=== PATIENT | female | born 1965 | race Caucasian/White ===

== ENCOUNTER 2016-07-26 02:31 | Emergency (ER) | payer MEDICARE ==
--- NOTE | 2016-07-26 04:13 | ER Document Report ---
ED General - General Chief Complaint: Head Injury without LOC Stated Complaint: FALL/HEAD INJURY Notes: Patient is a 31 year old female who presents with complaint of a fall. She slipped and fell backwards hitting her head. She also landed onto her butt. She has chronic low back problems but says her back hurts little more since falling. No leg weakness or numbness. No urinary retention. No loss of bowel control. No recent fevers or infections. No abdominal pain. No chest pain. No other complaints at this time. TRAVEL OUTSIDE OF THE [place] IN LAST 30 DAYS: No - Related Data Allergies/Adverse Reactions: amitriptyline Allergy (Severe, Verified 10/02/15 12:52) Renal failure atorvastatin calcium [From Lipitor] Allergy (Severe, Verified 10/02/15 12:52) pravastatin Allergy (Severe, Verified 10/02/15 12:52) ezetimibe [From Vytorin] Allergy (Intermediate, Verified 10/02/15 12:52) hydrochlorothiazide Allergy (Intermediate, Verified 10/02/15 12:52) simvastatin [From Vytorin] Allergy (Intermediate, Verified 10/02/15 12:52) sulfamethoxazole [From Bactrim] Allergy (Intermediate, Verified 10/02/15 12:52) Urticaria trimethoprim [From Bactrim] Allergy (Intermediate, Verified 10/02/15 12:52) Urticaria meperidine HCl [From Demerol] Allergy (Verified 10/02/15 12:52) morphine Allergy (Verified 10/02/15 12:52) prochlorperazine [From Compazine] Adverse Reaction (Intermediate, Verified 10/01 12:52) prochlorperazine edisylate [From Compazine] Adverse Reaction (Intermediate, Verified 10/02/15 12:52) prochlorperazine maleate [From Compazine] Adverse Reaction (Intermediate, Verified 10/02/15 12:52) Past Medical History - Social History Smoking Status: Never Smoker Chew tobacco use (# tins/day): No Frequency of alcohol use: None Drug Abuse: None Family History: None Patient has suicidal ideation: No Patient has homicidal ideation: No Endocrine Medical History: Comment Only: Hx Diabetes Mellitus Type 2 - Pre- diabetic Renal/ Medical History: Denies: Hx Peritoneal Dialysis Musculoskeltal Medical History: Reports Hx Fibromyalgia Past Surgical History: Reports: Hx Abdominal Surgery - gastric bypass, gallstones, Hx Urinary Tract Surgery - kidney stone removal Review of Systems - Review of Systems Notes: My Normal Review Basic REVIEW OF SYSTEMS: CONSTITUTIONAL : Denies fever, chills, or sweats. Denies recent illness. CARDIOVASCULAR: Denies chest pain. RESPIRATORY: Denies cough, cold, or chest congestion. Denies shortness of breath, difficulty breathing, or wheezing. GASTROINTESTINAL: Denies abdominal pain. Denies nausea, vomiting, or diarrhea. Denies constipation. Last BM: GENITOURINARY: Denies difficulty urinating, painful urination, burning, frequency, or blood in urine. MUSCULOSKELETAL: Low back pain SKIN: Denies rash or skin lesions. NEUROLOGICAL: Denies altered mental status or loss of consciousness. Has a headache. Denies weakness or paralysis or loss of use of either side. Denies problems with gait or speech. Denies sensory or motor loss. ALL OTHER SYSTEMS REVIEWED AND NEGATIVE. Physical Exam - Vital signs Vitals: Temp Pulse Resp BP Pulse Ox 97.6 F 92 18 112/79 96 07/26/16 02:59 07/26/16 02:59 07/26/16 02:59 07/26/16 02:59 07/26/16 02:59 - Notes Notes: General Appearance: Well nourished, alert, cooperative, no acute distress, mild obvious discomfort. Vitals: reviewed, See vital signs table. Head: Small hematoma to the back of the head. No crepitance. No scalp laceration. Eyes: PERRL, EOMI, Conjuctiva clear Mouth: No decreasd moisture Throat: No tonsillar inflammation, No airway obstruction, No lymphadenopathy Neck: Supple, no neck tenderness, No thyromegaly Lungs: No wheezing, No rales, No rhonci, No accessory muscle use, good air exchange bilaterally. Heart: Normal rate, Regular rythm, No murmur, no rub Abdomen: Normal BS, soft, No rigidity, No abdominal tenderness, No guarding, no rebound, no abdominal masses, no organomegaly Back: Some pain to palpation of the LS junction. No step-offs or deformities. Extremities: Good strength with plantar and dorsiflexion against resistance., good pulses in all extremities, no swelling or tenderness in the extremities, no edema. Skin: warm, dry, appropriate color, no rash Neuro: speech clear, oriented x 3, normal affect, responds appropriately to questions. Normal distal sensation. Cranial nerves II through XII are intact. Course - Vital Signs Vital signs: Temp Pulse Resp BP Pulse Ox 97.6 F 92 18 112/79 96 07/26/16 02:59 07/26/16 02:59 07/26/16 02:59 07/26/16 02:59 07/26/16 02:59 - Transfer of Care Notes: 07/26/16 05:38 Patient's x-rays and CT scan are negative. She looks very well. I feel she is safe to be discharged home. I encourage her to return to the ER immediately if she has severe headache, vomiting, loss of bowel control, urinary retention, or worsening pain. Patient agrees with plan and will be discharged home. Dictation of this chart was performed using voice recognition software; therefore, there may be some unintended grammatical errors. Discharge - Discharge Clinical Impression: Minor head injury without loss of consciousness Qualifiers: Encounter type: initial encounter Qualified Code(s): S09.90XA - Unspecified injury of head, initial encounter Low back pain Qualifiers: Chronicity: chronic Back pain laterality: bilateral Sciatica presence: without sciatica Qualified Code(s): M54.5 - Low back pain; G89.29 - Other chronic pain Fall Qualifiers: Encounter type: initial encounter Qualified Code(s): W19.XXXA - Unspecified fall, initial encounter Disposition: HOME, SELF-CARE Additional Instructions: Please return to ER immediately if you have severe headache, intractable vomiting, or feel confused, increasing back pain, weakness or numbness into legs , loss of control of her bowel function, or inability to urinate. Please follow -up with your doctor in 2-3 days for close reevaluation. Referrals: PANCHO LOYD MD [Primary Care Provider] - 07/30/16
[2016-07-26 06:10] VITALS: BP 114/78
== END 2016-07-26 06:00 | disposition home or self-care (01) ==
LOC: ER 02:31
DX: S09.90XA Unspecified injury of head, initial encounter (principal); W01.0XXA Fall on same level from slipping, tripping and stumbling without subsequent striking against object, initial encounter; M54.5 Low back pain; G89.29 Other chronic pain; Z88.8 Allergy status to other drugs, medicaments and biological substances; Z88.1 Allergy status to other antibiotic agents; Z88.5 Allergy status to narcotic agent; Z98.84 Bariatric surgery status
CPT/HCPCS: 70450; 72110; 99284

== ENCOUNTER → 2016-11-30 | Outpatient (CLI) | payer MEDICARE ==
--- NOTE | 2016-12-02 09:47 | RADIOLOGY REPORT (SQ) ---
EXAM DESCRIPTION: MRI CERVICAL SPINE WITHOUT COMPLETED DATE/TIME: 11/30/2016 6:43 pm REASON FOR STUDY: Other abnormal involuntary movements,Unspecified abnormalities of gait and R23.8 OTHER SKIN CHANGES R26.9 UNSPECIFIED ABNORMALITIES OF GAIT AND MOBILITY M50.30 OTHER CERVICAL DISC DEGENERATION, UNSP CERVICAL REGIO COMPARISON: CT cervical spine 10/02/2015 TECHNIQUE: Sagittal and Axial imaging includes T1, T2, STIR and gradient echo sequences. LIMITATIONS: Motion artifact throughout the study FINDINGS: ALIGNMENT: Normal. VERTEBRAE: Intact. BONE MARROW: Fatty reactive marrow changes at C5-6, edematous and sclerotic vertebral body endplate c hanges at C6-7 DISCS: Diffuse decreased T2 weighted intervertebral disc signal with diffuse disc space loss of HARDWARE: None in the spine. CORD AND BASE OF BRAIN: Normal in size and signal intensity. SOFT TISSUES: No soft tissue masses. C1-C2: No significant spinal stenosis. C2-C3: No significant spinal stenosis or exit foraminal stenosis. C3-C4: Moderate bilateral foraminal narrowing from facet and uncovertebral hypertrophy left greater t [place] right. No central stenosis. C4-C5: Mild bilateral foraminal narrowing from facet and uncovertebral hypertrophy. No central steno sis. C5-C6: Broad diffuse posterior disc bulge and bony spurring causes borderline central canal stenosis. High-grade bilateral foraminal narrowing from facet and uncovertebral hypertrophy. C6-C7: No significant spinBroad diffuse posterior disc bulge and bony spurring causes borderline cent ral canal stenosis. High-grade bilateral foraminal narrowing from facet and uncovertebral hypertroph yal stenosis or exit foraminal stenosis. C7-T1: No significant spinal stenosis or exit foraminal stenosis. UPPER THORACIC: Incompletely imaged. No significant spinal stenosis or exit foraminal stenosis. OTHER: No other significant finding. IMPRESSION: Degenerative changes as above TECHNICAL DOCUMENTATION: JOB ID: [id number] [employer]- All Rights Reserved
--- NOTE | 2016-12-02 09:51 | RADIOLOGY REPORT (SQ) ---
EXAM DESCRIPTION: MRI HEAD WITHOUT COMPLETED DATE/TIME: 11/30/2016 6:43 pm REASON FOR STUDY: Other abnormal involuntary movements,Unspecified abnormalities of gait and R23.8 OTHER SKIN CHANGES R26.9 UNSPECIFIED ABNORMALITIES OF GAIT AND MOBILITY M50.30 OTHER CERVICAL DISC DEGENERATION, UNSP CERVICAL REGIO COMPARISON: CT brain 10/02/2015, CT brain 07/26/2016 TECHNIQUE: Multiplanar imaging includes non-contrasted T1, T2, FLAIR, and diffusion with ADC map seq uences. Images stored on PACS. LIMITATIONS: None. FINDINGS: ANATOMY: No developmental anomalies. Normal vascular flow voids. Pituitary fossa normal. CSF SPACES: Normal in size and contour. No hemorrhage. 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 No MR evidence of acute infarct. No acute intracranial hemorrhage, mass effect, or midline shift. Minimal spotty bifrontal deep periventricular white matter disease. Punctate foci of FLAIR signal in the bifrontal subcortical regions, likely gliosis along perivascular spaces. POSTERIOR FOSSA: Substantia nigra on the gradient echo T2 images decreased in signal, early changes o f parkinsonism may be present. No acute hemorrhage. No edema, masses or mass effect. Internal audit ory canals, cerebello-pontine angles, mastoids normal. DIFFUSION IMAGING: Negative for acute or sub-acute infarction. ORBITS: No masses. Globes normal. PARANASAL SINUSES: No fluid levels. Mucosa normal. OTHER: No other significant finding. IMPRESSION: No acute findings. 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
== END ==
LOC: RAD 16:54
PROVIDERS: ATTEND Physician Assistant
DX: R25.8 Other abnormal involuntary movements (principal); R26.9 Unspecified abnormalities of gait and mobility; M50.30 Other cervical disc degeneration, unspecified cervical region
CPT/HCPCS: 70551; 72141

== ENCOUNTER → 2017-07-24 | Outpatient (CLI) | payer MEDICARE ==
--- NOTE | 2017-07-24 11:55 | RADIOLOGY REPORT (SQ) ---
EXAM DESCRIPTION: BARIUM SWALLOW PHARYNX ONLY COMPLETED DATE/TIME: 07/24/2017 10:05 am REASON FOR STUDY: DYPHAGIA (R13.10) R13.10 DYSPHAGIA, UNSPECIFIED COMPARISON: None. TECHNIQUE: Under fluoroscopic guidance, patient ingested effervescent granules followed by thick and thin barium. Fluoroscopic spot images and routine radiographic images acquired and stored on PACS. 12 MM BARIUM TABLET GIVEN: Yes. No significant delay in passage. LIMITATIONS: None. FLUOROSCOPY TIME: FLUORO TIME: 2.5 minutes 13 series of digital there is a prominent cricopharyngeal is impression on the dorsal upper esophagus . Images saved to PACS. FINDINGS: NEUROMUSCULAR COORDINATION OF SWALLOW: Normal. No aspiration. There is a prominent cricop haryngeal impression on the dorsal aspect of the upper esophagus. ESOPHAGEAL MOTILITY: Normal peristalsis. No esophageal spasm. ESOPHAGEAL MUCOSA: Normal mucosa without masses or ulceration. GASTRO-ESOPHAGEAL JUNCTION: Patient has had a gastric bypass. There is a small gastric fundal pouch, the majority of which is above the hemidiaphragm. There is gastroesophageal reflux throughout the s tudy without Schatzki's ring or gross distal esophageal mucosal irregularity. Prompt emptying of the gastric fundal pouch into the efferent small bowel loop. No proximal small aman wel ulceration at the anastomosis. NON-GI TRACT STRUCTURES: No significant finding. OTHER: No other significant finding. IMPRESSION: Post gastric bypass. The majority of the fundal best test pouch is above the hemidiaphr agms, with gastroesophageal reflux throughout the study. Prominent cricopharyngeal suppression in th e upper esophagus. No delay in emptying of the fundal pouch into the proximal small bowel loops. No gross evidence of a nastomotic ulcer. COMMENT: Quality ID 145: Final reports for procedures using fluoroscopy that document radiation exp osure indices, or exposure time and number of fluorographic images (if radiation exposure indices are not available) TECHNICAL DOCUMENTATION: JOB ID: [id number] [employer]- All Rights Reserved Reading location - IP/workstation name: [email or web address]
== END ==
LOC: RAD 09:11
PROVIDERS: ATTEND Internal Medicine Rheumatology
DX: R13.10 Dysphagia, unspecified (principal)
CPT/HCPCS: 74210

== ENCOUNTER → 2017-12-09 | Outpatient (CLI) | payer MEDICARE | LOC: OD 14:36 | PROVIDERS: ATTEND Specialist | DX: K43.2 Incisional hernia without obstruction or gangrene (principal) | CPT/HCPCS: 36415; 82565; 84520 ==

== ENCOUNTER → 2018-06-04 | Outpatient (CLI) | payer MEDICARE | LOC: WI 15:01 | PROVIDERS: ATTEND Advanced Practice Midwife | DX: Z12.31 Encounter for screening mammogram for malignant neoplasm of breast (principal) | CPT/HCPCS: 77063; 77067 ==

== ENCOUNTER → 2018-09-11 | Outpatient (CLI) | payer MEDICARE ==
[2018-09-11 10:25] LABS: BLOOD UREA NITROGEN 18 mg/dL (7-20)
== END ==
LOC: LAB 09:24
PROVIDERS: ATTEND Pain Medicine Interventional Pain Medicine
DX: Z00.00 Encounter for general adult medical examination without abnormal findings (principal)
CPT/HCPCS: 36415; 82565; 84520

== ENCOUNTER → 2019-05-04 | Day surgery (SDC) | payer MEDICARE ==
--- NOTE | 2019-05-04 16:13 | RADIOLOGY REPORT (SQ) ---
EXAM DESCRIPTION: PICC INSERTION; U/S GUIDE FOR VASCULAR ACCESS; FLUORO/CV PLACEMENT COMPLETED DATE/TIME: 05/04/2019 3:23 pm REASON FOR STUDY: T84.63XD INFECT/INFLM REACTION DUE TO INT FIX OF SPINE, SUBS, L02.212 CUTAN T84.63 XD INFECT/INFLM REACTION DUE TO INT FIX OF SPINE, SUBS L02.212 CUTANEOUS ABSCESS OF BACK ANY PART, EXCEPT BUTTOCK COMPARISON: None. FLUOROSCOPY TIME: 1 minutes 3 seconds of fluoroscopy was used. 1 images saved to PACS. TECHNIQUE: Fluoroscopic and ultrasound guided PICC placement. LIMITATIONS: None. PROCEDURE: After written consent and assessment were obtained, the patient was brought into the fluo roscopy room and placed supine on the table. Ultrasound evaluation of potential access sites were per formed. After successfully identifying a patent left basilic vein, the left arm was prepped and drape d in a sterile fashion along with the ultrasound probe. The entry site was anesthetized with 1% lidoc brice. A 21 gauge 7 cm needle was advanced through the skin and into the basilic vein under live ultra sound guidance. An ultrasound image was saved to PACS confirming access site. A .018 guide wire was then inserted through the needle and into the venous system. The needle was then removed and an 11 b lade scalpel was used to make a 1cm skin incision. A 5 fr peel-away sheath was advanced over the wir e and into the venous system. A measurement was then made using the existing wire and live fluoroscop ic guidance. The wire was then removed and trimmed. The PICC was advanced through the peel-away sheat h and into the venous system. The peel-away sheath was removed and the catheter was adhered to the pa tients arm with a stat lock. The catheter was then aspirated and flushed and a sterile bandage was pl aced over the access site. A fluoroscopic spot image was saved to PACS confirming the catheter tip w ithin the superior vena cava. IMPRESSION: SUCCESSFUL PLACEMENT OF A 5 FR DUAL LUMEN 41 CM PICC IN THE LEFT BASILIC VEIN. COMMENT: Patient medication list reviewed: Yes- Quality ID# 130:Eligible professional attests to doc umenting in the medical record they obtained, updated, or reviewed the patient's current medications. . Quality ID 145: Final reports for procedures using fluoroscopy that document radiation exposure matthew eva, or exposure time and number of fluorographic images (if radiation exposure indices are not avail able) Quality ID #76: The patient was prepped and draped using maximum sterile barrier technique including cap, mask, sterile gown, sterile gloves, a large sterile sheet, hand hygiene, and 2% Chlorhexidine fo r cutaneous antisepsis. When ultrasound is used, sterile ultrasound techniques are followed requiring sterile gel and sterile probes. TECHNICAL DOCUMENTATION: JOB ID: [id number] [employer]- All Rights Reserved rev-10/11 Reading location - IP/workstation name: [email or web address] [id number]
== END ==
LOC: RAD 13:38
PROVIDERS: ATTEND Specialist
DX: T84.63XD Infection and inflammatory reaction due to internal fixation device of spine, subsequent encounter (principal); L02.212 Cutaneous abscess of back [any part, except buttock and flank]; X58.XXXD Exposure to other specified factors, subsequent encounter
CPT/HCPCS: 85025; 85652; 86140; 80053; 36569; 77001; 76937; C1769; J1642

== ENCOUNTER → 2019-06-05 | Day surgery (SDC) | payer MEDICARE ==
[~2019-06-05] MED LIST: LIDOCAINE 1% INJ-PF (10 MG/ML) 30 ML SDV ONE
--- NOTE | 2019-06-05 13:22 | RADIOLOGY REPORT (SQ) ---
EXAM DESCRIPTION: REMOVAL CENTRAL TUNNELED LINE COMPLETED DATE/TIME: 06/05/2019 10:38 am REASON FOR STUDY: VASCULAR ACCESS NO LONGER NEEDED COMPARISON: None. TECHNIQUE: The procedure, risks, benefits, and alternatives were discussed with the patient in the p reprocedural area, and all questions were answered. Informed consent was obtained verbally and in wri ting. The patient was then brought to the procedural suite, positioned supine on the fluoroscopy table, and a time-out was performed. The right upper chest and external portion of the tunneled PICC were subs equently prepped and draped with 2% chlorhexidine utilizing standard sterile technique. The soft tis sues around the cuff of the tunneled PICC were then infiltrated with 10 mL of 1% lidocaine. After th at, blunt dissection was used to free the cuff of the catheter. The catheter was subsequently remove d intact and without complication. Thaxton garcia was then applied over the entrance of the subcutaneous tunnel and afterwards a sterile dressing was applied over it. At the end of the procedure the patient's condition was unchanged from the preprocedural baseline. The patient tolerated the procedure well with local anesthesia. Documentation of [id number] time performing proceduralist spent monitoring the patient: 15 minutes. RADIATION DOSE: None. LIMITATIONS: None. FINDINGS: Integrated into the Technique. IMPRESSION: Successful removal of a tunneled single-lumen right IJ PICC. TECHNICAL DOCUMENTATION: JOB ID: [id number] [employer]- All Rights Reserved Reading location - IP/workstation name: [email or web address]
== END ==
LOC: RAD 06-04 12:45 → EDSTATUS 13:00
PROVIDERS: ATTEND Specialist
DX: Z45.2 Encounter for adjustment and management of vascular access device (principal)
CPT/HCPCS: 36589; J3490

== ENCOUNTER 2019-06-16 07:56 | Inpatient (IN) | payer MEDICARE ==
--- NOTE | 2019-06-16 09:05 | RADIOLOGY REPORT (SQ) ---
EXAM DESCRIPTION: ANKLE LEFT COMPLETE COMPLETED DATE/TIME: 06/16/2019 7:39 am REASON FOR STUDY: PAIN . Fell. COMPARISON: None NUMBER OF VIEWS: Three views. TECHNIQUE: AP, lateral, and oblique radiographic images acquired of the left ankle. LIMITATIONS: None. FINDINGS: MINERALIZATION: Osteopenia. BONES: There are acute oblique fractures through the distal tibial and fibula metaphysis. Medial dis placement of the distal fracture fragment with approximately 1 cm proximal dislocation. On lateral v iew, there is posterior angulation of the distal fracture fragments. JOINTS: Diffuse soft tissue swelling. SOFT TISSUES: No soft tissue swelling. No foreign body. OTHER: No other significant finding. IMPRESSION: Acute displaced and angulated fractures of the distal tibia and fibula metaphysis. No i nvolvement of the ankle mortise. TECHNICAL DOCUMENTATION: JOB ID: [id number] [employer]- All Rights Reserved Reading location - IP/workstation name: [email or web address]
--- NOTE | 2019-06-16 09:12 | ER Document Report ---
Entered by VEL WEAVER SCRIBE 06/16/19819 Acting as scribe for:KYLEIGH WISEMAN MD ED Extremity Problem, Lower - General Chief Complaint: Ankle Injury Stated Complaint: LEFT ANKLE PAIN Time Seen by Provider: 06/16/19 08:17 Mode of Arrival: Medic Information source: Patient Notes: This 54 year old female patient brought in by EMS presents to the ED today with complaints of a left ankle injury after falling down some steps that occurred prior to arrival. Patient states she was on her way to her cataracts surgery this morning when her "knee gave out" and she fell down a short staircase outside her home. Patient denies a head injury or loss of consciousness. Patient states that she is on chronic pain management for her back and that she recently had lumbar fusion L4-5 on 03/17/19 because of a slipping disc that got infected. Patient states that she was put on IV antibiotics that ran out on 06/04/19 and that she has been npo for her cataracts surgery. TRAVEL OUTSIDE OF THE [place] IN LAST 30 DAYS: No - Related Data Allergies/Adverse Reactions: amitriptyline Allergy (Severe, Verified 06/16/19 08:04) Renal failure atorvastatin calcium [From Lipitor] Allergy (Severe, Verified 06/16/19 08:04) pravastatin Allergy (Severe, Verified 06/16/19 08:04) ezetimibe [From Vytorin] Allergy (Intermediate, Verified 06/16/19 08:04) hydrochlorothiazide Allergy (Intermediate, Verified 06/16/19 08:04) simvastatin [From Vytorin] Allergy (Intermediate, Verified 06/16/19 08:04) sulfamethoxazole [From Bactrim] Allergy (Intermediate, Verified 06/16/19 08:04) Urticaria trimethoprim [From Bactrim] Allergy (Intermediate, Verified 06/16/19 08:04) Urticaria hydromorphone [From Dilaudid] Allergy (Mild, Verified 06/16/19 08:04) ITCHING meperidine HCl [From Demerol] Allergy (Verified 06/16/19 08:04) prochlorperazine [From Compazine] Adverse Reaction (Intermediate, Verified 06/16/19 08:04) Past Medical History - General Information source: Patient - Social History Smoking Status: Never Smoker Chew tobacco use (# tins/day): No Smoking Education Provided: No Frequency of alcohol use: None Drug Abuse: None Lives with: Spouse/Significant other Family History: Reviewed & Not Pertinent Patient has suicidal ideation: No Patient has homicidal ideation: No Endocrine Medical History: Comment Only: Hx Diabetes Mellitus Type 2 - Pre- diabetic Musculoskeletal Medical History: Reports Hx Fibromyalgia Past Surgical History: Reports: Hx Abdominal Surgery - Gallstones, Hx Gastric Bypass Surgery, Hx Urinary Tract Surgery - kidney stone removal Review of Systems - Review of Systems Constitutional: No symptoms reported EENT: No symptoms reported Cardiovascular: No symptoms reported Respiratory: No symptoms reported Gastrointestinal: No symptoms reported Genitourinary: No symptoms reported Female Genitourinary: No symptoms reported Musculoskeletal: See HPI, Ankle swelling, Other - Left ankle injury Skin: No symptoms reported Hematologic/Lymphatic: No symptoms reported Neurological/Psychological: See HPI. denies: Lost consciousness -: Yes All other systems reviewed and negative Physical Exam - Vital signs Vitals: Temp Pulse Resp BP Pulse Ox 98.0 F 100 15 119/89 H 94 06/16/19 08:07 06/16/19 08:07 06/16/19 08:07 06/16/19 08:07 06/16/19 08:07 - General General appearance: Alert - HEENT Head: Normocephalic, Atraumatic Eyes: Normal Pupils: PERRL - Respiratory Respiratory status: No respiratory distress Chest status: Nontender Breath sounds: Normal Chest palpation: Normal - Cardiovascular Rhythm: Regular Heart sounds: Normal auscultation Murmur: No - Abdominal Inspection: Obese Distension: No distension Bowel sounds: Normal Tenderness: Nontender Organomegaly: No organomegaly - Back Back: Normal, Nontender - Extremities General upper extremity: Normal inspection General lower extremity: Tender - Left knee and right ankle near the lateral malleolus posteriorly are tender with palpation., Edema - Left ankle appears to be grossly swollen and immobilized by a splint. Deformity noted right above the left ankle. Edema over lateral malleolus posteriorly of right ankle., Other - Toes on left floot are flexed, cool to touch, and kishan when palpated. 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 Toes are a little cyanotic, which is consistent with Reynaud's. - Neurological Neuro grossly intact: Yes - Psychological Associated symptoms: Normal affect, Normal mood - Skin Skin Temperature: Warm Skin Moisture: Dry Skin Color: Normal Course - Vital Signs Vital signs: Temp Pulse Resp BP Pulse Ox 98.0 F 100 18 137/96 H 99 06/16/19 08:07 06/16/19 08:07 06/16/19 09:00 06/16/19 09:00 06/16/19 09:00 - Diagnostic Test Radiology reviewed: Image reviewed, Reports reviewed - Left ankle--acute displaced and angulated fractures of the distal tibia and fibular metaphyses. No involvement of the ankle mortise. Right ankle--nondisplaced oblique fracture of the distal fibula without involvement of the ankle mortise. - Consults Dr. Park Time consulted: 08:40 Consulted provider: will see as inpatient Discharge - Discharge Clinical Impression: Fractured tibia and fibula Qualifiers: Encounter type: initial encounter Fracture type: closed Laterality: left Qualified Code(s): S82.202A - Unspecified fracture of shaft of left tibia, initial encounter for closed fracture Fracture of distal fibula Qualifiers: Encounter type: initial encounter Fracture type: closed Fracture morphology: unspecified fracture morphology Laterality: right Qualified Code(s): S82.831A - Other fracture of upper and lower end of right fibula, initial encounter for closed fracture Condition: Stable Disposition: ADMITTED INPATIENT Admitting Provider: Dr. Park Unit Admitted: Surgical Floor Scribe Attestation: 06/16/19 08:28 I personally performed the services described in the documentation, reviewed and edited the documentation which was dictated to the scribe in my presence, and it accurately records my words and actions. I personally performed the services described in the documentation, reviewed and edited the documentation which was dictated to the scribe in my presence, and it accurately records my words and actions.
[2019-06-16] MEDS ORDERED: FENTANYL CITRATE INJ/PF 100 MCG/2 ML AMPUL IV ONE (09:15)
--- NOTE | 2019-06-16 09:17 | RADIOLOGY REPORT (SQ) ---
EXAM DESCRIPTION: ANKLE RIGHT COMPLETE COMPLETED DATE/TIME: 06/16/2019 7:58 am REASON FOR STUDY: fall, pain swelling COMPARISON: None. NUMBER OF VIEWS: Three views. TECHNIQUE: AP, lateral, and oblique radiographic images acquired of the right ankle. LIMITATIONS: None. FINDINGS: MINERALIZATION: Osteopenia. BONES: There is a subtle oblique cortical irregularity at the distal fibula suspicious for a nondispl aced distal fibula fracture. The distal tibia has normal appearance. Bones of the midfoot and calca neus are intact. Small plantar calcaneal spur. Os trigonum is noted. JOINTS: There is a small anterior joint effusion at the ankle. The ankle mortise is intact with norm al alignment. SOFT TISSUES: Soft tissue swelling at the lateral malleolus. OTHER: No other significant finding. IMPRESSION: Subtle nondisplaced oblique fracture distal fibula. Associated small joint effusion and soft tissue swelling. The ankle mortise is intact. TECHNICAL DOCUMENTATION: JOB ID: [id number] [employer]- All Rights Reserved Reading location - IP/workstation name: [email or web address]
[2019-06-16] MEDS ORDERED: ONDANSETRON 4 MG TAB.RAPDIS PO PRN (13:23)
[2019-06-16] MEDS ORDERED: ONDANSETRON HCL INJ/PF 4 MG/2 ML SDV ONE (14:44)
[2019-06-16] MEDS ORDERED: DEXAMETHASONE SOD PHOSPHATE INJ 4 MG/1 ML VIAL ONE (14:44)
[2019-06-16] MEDS ORDERED: KETOROLAC TROMETHAMINE 60 MG/2 ML SDV ONE (14:44)
--- NOTE | 2019-06-16 15:13 | RADIOLOGY REPORT (SQ) ---
EXAM DESCRIPTION: CHEST SINGLE VIEW COMPLETED DATE/TIME: 06/16/2019 2:33 pm REASON FOR STUDY: Preop eval COMPARISON: 05/08/2019. EXAM PARAMETERS: NUMBER OF VIEWS: One view. TECHNIQUE: Single frontal radiographic view of the chest acquired. RADIATION DOSE: NA LIMITATIONS: None. FINDINGS: LUNGS AND PLEURA: Ill-defined density in the medial right upper lobe. Left lung clear. N o pleural effusion. No pneumothorax. MEDIASTINUM AND HILAR STRUCTURES: No masses. Contour normal. HEART AND VASCULAR STRUCTURES: Heart normal in size. Normal vasculature. BONES: No acute findings. HARDWARE: None in the chest. OTHER: No other significant finding. IMPRESSION: ILL-DEFINED DENSITY IN THE MEDIAL RIGHT UPPER LOBE. POSSIBLE DEVELOPING INFILTRATE. TECHNICAL DOCUMENTATION: JOB ID: [id number] [employer]- All Rights Reserved Reading location - IP/workstation name: [email or web address]
[2019-06-16] MEDS: MORPHINE SULFATE 10 MG/ML INJ IV PRN ×3 (15:16→22:43)
--- NOTE | 2019-06-16 16:59 | EKG REPORT ---
SEVERITY:- BORDERLINE ECG - SINUS RHYTHM BORDERLINE T ABNORMALITIES, ANTERIOR LEADS : Confirmed by: Lokesh Dixon MD 16-Jun-2019 16:58:49
[2019-06-16] MEDS ORDERED: DEXTROSE 40% GEL 15 GM TUBE PO PRN ×2 (17:43)
[2019-06-16] MEDS ORDERED: DEXTROSE 50%-WATER 25 GM/50 ML DISP.SYRIN IV PRN ×2 (17:43)
[2019-06-16] MEDS ORDERED: GLUCAGON,HUMAN RECOMB 1 MG INJ SUBCUT PRN (17:43)
[2019-06-16] MEDS: CLONAZEPAM 1 MG TABLET PO SCH (23:41)
[2019-06-17] MEDS: RINGERS SOLUTION,LACTATED 1,000 ML IV PRN ×3 (00:09→18:22)
[2019-06-17] MEDS: MORPHINE SULFATE 10 MG/ML INJ IV PRN ×5 (01:17→20:15)
--- NOTE | 2019-06-17 06:47 | PDOC H&P ---
History of Present Illness Admission Date/PCP: 06/16/19 09:23 PANCHO LOYD MD History of Present Illness: MAXINE VALADEZ is a 54 year old female 54-year-old white female who slipped and fell down 3 steps on the day of admission sustaining bilateral ankle injuries. She was evaluated in the emergency room where a left displaced distal tib-fib fracture was identified radiographically as well as a nondisplaced right lateral malleolus fracture. The patient is admitted to orthopedic service for fracture management. Past Medical History Cardiac Medical History: Denies: Myocardial Infarction, Hypertension Pulmonary Medical History: Denies: Asthma Neurological Medical History: Denies: Seizures Endocrine Medical History: Comment Only: Diabetes Mellitus Type 2 - Pre-diabetic GI Medical History: Denies: Hepatitis, Hiatal Hernia Musculoskeltal Medical History: Reports: Fibromyalgia Psychiatric Medical History: Reports: Depression Hematology: Denies: Anemia, Sickle Cell Disease Past Surgical History Past Surgical History: Reports: Cholecystectomy, Gastric Bypass Surgery, Orthopedic Surgery - back surgery, Tonsillectomy Denies: Amputation, Mastectomy, Pacemaker Social History Information Source: Patient, [facility] Records Lives with: Spouse/Significant other Smoking Status: Never Smoker - Advance Directive Resuscitation Status: Full Code Family History Family History: Reviewed & Not Pertinent Parental Family History Reviewed: No Children Family History Reviewed: No Sibling(s) Family History Reviewed.: No Medication/Allergy Home Medications: Oxycodone HCl 15 mg PO Q4HP PRN MDD TAKE WITH GABAPENTIN 10/02/15 Trazodone HCl 100 mg PO QHS 10/02/15 Buspirone HCl [Buspar 10 mg Tablet] 15 mg PO QPM 06/10/19 Lamotrigine [Lamictal] 200 mg PO QPM 06/10/19 Benztropine Mesylate [Cogentin 1 mg Tablet] 1 mg PO QPM 06/16/19 Cariprazine HCl [Vraylar] 3 mg PO QPM 06/16/19 Clonazepam [Klonopin] 0.5 mg PO BIDP PRN 06/16/19 Clonazepam [Klonopin] 0.5 mg PO QPM 06/16/19 Cyclobenzaprine HCl [Flexeril 10 mg Tablet] 10 mg PO Q8HP PRN 06/16/19 Desvenlafaxine Succinate [Pristiq ER] 50 mg PO QPM 06/16/19 Famotidine [Pepcid 10 mg Tablet] 10 mg PO QPM 06/16/19 Gabapentin [Neurontin 300 mg Capsule] 300 mg PO Q4HP PRN MDD TAKE WITH OXYCODONE 06/16/19 Multivit-Minerals/Folic Acid [One-A-Day Vitacraves Gummie] 200 mcg PO QPM Allergies/Adverse Reactions: amitriptyline Allergy (Severe, Verified 06/16/19 08:04) Renal failure atorvastatin calcium [From Lipitor] Allergy (Severe, Verified 06/16/19 08:04) pravastatin Allergy (Severe, Verified 06/16/19 08:04) ezetimibe [From Vytorin] Allergy (Intermediate, Verified 06/16/19 08:04) hydrochlorothiazide Allergy (Intermediate, Verified 06/16/19 08:04) simvastatin [From Vytorin] Allergy (Intermediate, Verified 06/16/19 08:04) sulfamethoxazole [From Bactrim] Allergy (Intermediate, Verified 06/16/19 08:04) Urticaria trimethoprim [From Bactrim] Allergy (Intermediate, Verified 06/16/19 08:04) Urticaria hydromorphone [From Dilaudid] Allergy (Mild, Verified 06/16/19 08:04) ITCHING meperidine HCl [From Demerol] Allergy (Verified 06/16/19 08:04) prochlorperazine [From Compazine] Adverse Reaction (Intermediate, Verified 06/16/19 08:04) Review of Systems All systems: as per PMH Physical Exam Vital Signs: Temp Pulse Resp BP Pulse Ox 37.0 C 95 20 125/81 92 06/16/19 23:00 06/16/19 23:00 06/16/19 23:00 06/16/19 23:00 06/16/19 23:00 Intake & Output 06/15/19 06/16/19 06/17/19 06:59 06:59 06:59 Intake Total 222 Output Total 1400 Balance -1178 Weight 91.6 kg Physical Exam: Patient is an overweight if not obese middle-aged white female lying in a hospital bed. Her is sitting in a recliner next to her. The patient is alert, oriented, and appropriate. General appearance: PRESENT: mild distress, obese Respiratory exam: PRESENT: unlabored Cardiovascular exam: PRESENT: RRR Pulses: PRESENT: +1 pedal pulses bilateral Vascular exam: PRESENT: normal capillary refill GI/Abdominal exam: PRESENT: soft Rectal exam: PRESENT: deferred Extremities exam: PRESENT: other - Bilateral lower extremities immobilized in posterior splints. Toes are visible. Distal neurovascular examination is intact. Neurological exam: PRESENT: alert, awake, oriented to person, oriented to place, oriented to time, oriented to situation. ABSENT: motor sensory deficit Psychiatric exam: PRESENT: appropriate affect, normal mood. ABSENT: homicidal ideation, suicidal ideation Skin exam: PRESENT: dry, intact, warm. ABSENT: cyanosis, rash Results Impressions: Chest X-Ray 06/16/19 00:00 IMPRESSION: ILL-DEFINED DENSITY IN THE MEDIAL RIGHT UPPER LOBE. POSSIBLE DEVELOPING INFILTRATE. Ankle X-Ray 06/16/19 08:37 IMPRESSION: Subtle nondisplaced oblique fracture distal fibula. Associated small joint effusion and soft tissue swelling. The ankle mortise is intact. Status: Imported from PACS Assessment & Plan - Diagnosis (1) Fractured tibia and fibula Qualifiers: Encounter type: initial encounter Fracture type: closed Laterality: left Qualified Code(s): S82.202A - Unspecified fracture of shaft of left tibia, initial encounter for closed fracture; S82.402A - Unspecified fracture of shaft of left fibula, initial encounter for closed fracture Is this a current diagnosis for this admission?: Yes Plan: Plan for an open reduction under regional anesthesia. (2) Fracture of distal fibula Qualifiers: Encounter type: initial encounter Fracture type: closed Fracture morphology: unspecified fracture morphology Laterality: right Qualified Code(s): S82.831A - Other fracture of upper and lower end of right fibula, initial encounter for closed fracture Is this a current diagnosis for this admission?: Yes Plan: Plan for nonoperative therapy. - Time Time Spent: 50 to 70 Minutes Anticipated discharge: SNF - Because of bilateral lower extremity involvement and restricted weightbearing I anticipate the patient will require longterm facility placement.
[2019-06-17] MEDS ORDERED: TRANEXAMIC ACID INJ/PF 1,000 MG/10 ML SDV IV PRN (09:53)
[2019-06-17] MEDS ORDERED: CEFAZOLIN SODIUM 2 GM in DEXTROSE 5%-WATER 100 ML IV PRN (09:53)
[2019-06-17] MEDS ORDERED: FENTANYL CITRATE INJ/PF 100 MCG/2 ML AMPUL ONE ×3 (10:40→13:05)
[2019-06-17] MEDS ORDERED: PROPOFOL INJ 200 MG/20 ML VIAL IV ONE (10:41)
[2019-06-17] MEDS ORDERED: MIDAZOLAM 2 MG/2 ML INJ ONE ×2 (10:41→10:42)
[2019-06-17] MEDS: BUPIVACAINE INJ/PF LIPOSOME/PF 266 MG/20 ML SDV ONE ×2 (12:10→12:38)
--- NOTE | 2019-06-17 12:43 | Operative Report ---
Operative Report DATE OF SURGERY: 06/17/19 PREOPERATIVE DIAGNOSIS: Distal third left tib-fib fracture OPERATION: ORIF of the lateral malleolus. ORIF of tibia SURGEON: CYNTHIA CHAN ANESTHESIA: GA ESTIMATED BLOOD LOSS: 75 PROCEDURE: With the patient supine on the operating table the left lower extremities prepped and draped in a sterile fashion. An incision was made over the distal lateral fibula and sharp dissection was disposed the underlying fibular fracture. This is reduced anatomically and the position and secured using a Tyler titanium distal fibular plate. There are 4 screws distally and 4 screws proximally. Next a approach is made to the tibial plateau in the midline. A pin is placed through the tibial plateau down into the proximal metadiaphysis. A combined reamer was used to fashion a cortical opening. This is removed and a ball-tipped guide rods placed down the tibia. Length is measured to be 330 mm. Subsequently flexible reamers were used until a 12 mm reamer is passed. Next a Tyler titanium tibial nail 330 mm x 11 mm was passed over the ball-tipped guide tasia. It secured distally with 3 screws and proximally with one screw. The construct is assessed fluoroscopically and felt to be adequate. The tourniquet is deflated. The wounds irrigated with bulb lavage. The closure was erupted Vicryl followed by amanda. A sterile compressive dressing was applied and the patient was returned to PACU in satisfactory condition.
[2019-06-17] MEDS ORDERED: PROMETHAZINE HCL INJ 25 MG/1 ML VIAL ONE (13:04)
[2019-06-17] MEDS ORDERED: TRANEXAMIC ACID INJ/PF 1,000 MG/10 ML SDV ONE (13:51)
[2019-06-17] MEDS ORDERED: MEPERIDINE HCL/PF INJ 25 MG/1 ML DISP.SYRIN IV PRN (13:56)
[2019-06-17] MEDS ORDERED: DIPHENHYDRAMINE HCL 50 MG/ML VIAL IV PRN (13:56)
[2019-06-17] MEDS ORDERED: FENTANYL CITRATE INJ/PF 100 MCG/2 ML AMPUL IV PRN ×3 (13:56)
[2019-06-17] MEDS ORDERED: OXYCODONE-ACETAMINOPHEN 5-325 MG TABLET PO PRN ×2 (13:56)
[2019-06-17] MEDS ORDERED: PROMETHAZINE HCL INJ 25 MG/1 ML VIAL IV PRN ×2 (13:56)
[2019-06-17] MEDS ORDERED: ACETAMINOPHEN 1,000 MG/100 ML RTUPB IV ONE (13:57)
--- NOTE | 2019-06-17 13:58 | RADIOLOGY REPORT (SQ) ---
EXAM DESCRIPTION: ANKLE LEFT AP/LATERAL; NO CHG FLUORO COMPLETED DATE/TIME: 06/17/2019 1:47 pm REASON FOR STUDY: LEFT ANKLE ORIF S82.831A OTH FRACTURE OF UPPER AND LOWER END OF RIGHT FIBULA S82. 402A UNSP FRACTURE OF SHAFT OF LEFT FIBULA, INIT FOR JENNIFER COMPARISON: None. FLUOROSCOPY TIME: 1.8 minutes Spot images saved to PACS. TECHNIQUE: Intra-operative images acquired during surgical procedure to evaluate progress. NUMBER OF IMAGES: 13 LIMITATIONS: None. FINDINGS: Fluoroscopy was provided for intraoperative procedure. Please refer to the operative repo rt further discussion. IMPRESSION: IMAGE(S) OBTAINED DURING PROCEDURE. COMMENT: Quality ID [id number]: Final reports for procedures using fluoroscopy that document radiation exp osure indices, or exposure time and number of fluorographic images (if radiation exposure indices are not available) Please consult full operative report of the attending physician for description of the procedure. TECHNICAL DOCUMENTATION: JOB ID: [id number] [employer]- All Rights Reserved Reading location - IP/workstation name: [email or web address]
--- NOTE | 2019-06-17 13:58 | RADIOLOGY REPORT (SQ) ---
EXAM DESCRIPTION: ANKLE LEFT AP/LATERAL; NO CHG FLUORO COMPLETED DATE/TIME: 06/17/2019 1:47 pm REASON FOR STUDY: LEFT ANKLE ORIF S82.831A OTH FRACTURE OF UPPER AND LOWER END OF RIGHT FIBULA S82. 402A UNSP FRACTURE OF SHAFT OF LEFT FIBULA, INIT FOR JENNIFER COMPARISON: None. FLUOROSCOPY TIME: 1.8 minutes Spot images saved to PACS. TECHNIQUE: Intra-operative images acquired during surgical procedure to evaluate progress. NUMBER OF IMAGES: 13 LIMITATIONS: None. FINDINGS: Fluoroscopy was provided for intraoperative procedure. Please refer to the operative repo rt further discussion. IMPRESSION: IMAGE(S) OBTAINED DURING PROCEDURE. COMMENT: Quality ID [id number]: Final reports for procedures using fluoroscopy that document radiation exp osure indices, or exposure time and number of fluorographic images (if radiation exposure indices are not available) Please consult full operative report of the attending physician for description of the procedure. TECHNICAL DOCUMENTATION: JOB ID: [id number] [employer]- All Rights Reserved Reading location - IP/workstation name: [email or web address]
[2019-06-17] MEDS ORDERED: TRANEXAMIC ACID INJ/PF 1,000 MG/10 ML SDV IV ONE (14:00)
[2019-06-17] MEDS ORDERED: DEXTROSE 40% GEL 15 GM TUBE X 2 PO PRN (14:30)
[2019-06-17] MEDS ORDERED: DEXTROSE 40% GEL 15 GM TUBE PO PRN (14:30)
[2019-06-17] MEDS ORDERED: DEXTROSE 50%-WATER SYRINGE 25 GM/50 ML DOSE IV PRN (14:30)
[2019-06-17] MEDS ORDERED: GLUCAGON,HUMAN RECOMB 1 MG INJ IM PRN (14:30)
[2019-06-17] MEDS ORDERED: DEXTROSE 50%-WATER SYRINGE 12.5 GM/25 ML DOSE IV PRN (14:30)
[2019-06-17] MEDS: OXYCODONE HCL IR 5 MG TABLET PO PRN (16:44)
[2019-06-17] MEDS: INSULIN LISPRO 100 UNIT/ML 3 ML VIAL SUBCUT SCH ×2 (16:45→23:13)
[2019-06-17] MEDS: CEFAZOLIN SODIUM 2 GM in DEXTROSE 5%-WATER 100 ML IV SCH (18:22)
[2019-06-17] MEDS ORDERED: (PENDING PHARMACY ID) (Clonazepam [Klonopin] 0.5 MG) PO PRN (21:04)
[2019-06-17] MEDS ORDERED: CLONAZEPAM 1 MG TABLET PO PRN ×2 (21:26→21:34)
[2019-06-17] MEDS: TRAZODONE HCL 50 MG TABLET PO SCH (21:39)
[2019-06-17] MEDS: CLONAZEPAM 1 MG TABLET PO SCH (21:39)
[2019-06-17] MEDS ORDERED: SODIUM POLYSTYRENE SULFONATE 15 GM/60 ML PR SCH (22:00)
[2019-06-18] MEDS: CEFAZOLIN SODIUM 2 GM in DEXTROSE 5%-WATER 100 ML IV SCH (01:25)
[2019-06-18] MEDS: MORPHINE SULFATE 10 MG/ML INJ IV PRN ×2 (03:26→05:56)
--- NOTE | 2019-06-18 06:55 | PDOC PROGRESS REPORT ---
Subjective Progress Note for:: 06/18/19 Reason For Visit: S82.831A OTH FRACTURE OF UPPER AND LOWER END OF RI 54-year-old white female now postop day 1 status post open reduction internal fixation of a left distal third tib-fib fracture. Patient complaining of pain postoperatively. [facility] pain management was consulted since she was an ongoing patient of theirs. Medication adjustments were made and the patient is more comfortable this morning. Physical Exam Vital Signs: Temp Pulse Resp BP Pulse Ox 37.1 C 106 H 16 113/72 94 06/17/19 23:34 06/17/19 23:34 06/17/19 23:34 06/17/19 23:34 06/17/19 23:34 Intake & Output 06/16/19 06/17/19 06/18/19 06:59 06:59 06:59 Intake Total 1222 1800 Output Total 1400 1400 Balance -178 400 Weight 91.6 kg 91.6 kg Physical Exam: Overweight if not obese middle-aged white female lying in hospital bed. Patient is alert, oriented, appropriate. General appearance: PRESENT: obese Head exam: PRESENT: normocephalic - Sure Respiratory exam: PRESENT: unlabored - A 21-gauge needle was advanced through medial infrapatellar portal and used and reduced 5 mL of 0.5% Marcaine and 80 mg of Depo-Medrol Trochanteric bursitis goes all the way up and down structurally I have explained to the patient the alternatives for care and we discuss the potential complications from an injection of an anesthetic solution with a corticosteroid. These include, but are not limited to, pain, lightening of the skin color in the area of the injection, thinning of the fat tissue under the skin, nerve injury and bruising. The patient accepts these risks and expresses the desire to proceed with the injection. Office A 21-gauge needle was advanced through medial infrapatellar portal and used and reduced 5 mL of 0.5% Marcaine and 80 mg of Depo-Medrol Cardiovascular exam: PRESENT: RRR Pulses: PRESENT: +1 pedal pulses bilateral Vascular exam: PRESENT: normal capillary refill GI/Abdominal exam: PRESENT: soft Rectal exam: PRESENT: deferred Extremities exam: PRESENT: other - Right lower extremity in a posterior splint which is unchanged. Left lower extremity in a compressive dressing. There is some drainage apparent through the dressing at the patellar incision site. There is some swelling about the foot and toes. Distal neurovascular examination is intact. Neurological exam: PRESENT: alert, awake, oriented to person, oriented to place, oriented to time, oriented to situation. ABSENT: motor sensory deficit Psychiatric exam: PRESENT: appropriate affect, normal mood. ABSENT: homicidal ideation, suicidal ideation Skin exam: PRESENT: dry, intact, warm. ABSENT: cyanosis, rash Results Impressions: Chest X-Ray 06/16/19 00:00 IMPRESSION: ILL-DEFINED DENSITY IN THE MEDIAL RIGHT UPPER LOBE. POSSIBLE DEVELOPING INFILTRATE. Ankle X-Ray 06/17/19 00:00 IMPRESSION: IMAGE(S) OBTAINED DURING PROCEDURE. Fluoroscopy 06/17/19 00:00 IMPRESSION: IMAGE(S) OBTAINED DURING PROCEDURE. Status: Imported from PACS Assessment & Plan - Diagnosis (1) Fractured tibia and fibula Qualifiers: Encounter type: initial encounter Fracture type: closed Laterality: left Qualified Code(s): S82.202A - Unspecified fracture of shaft of left tibia, in itial encounter for closed fracture; S82.402A - Unspecified fracture of shaft of left fibula, initial encounter for closed fracture Is this a current diagnosis for this admission?: Yes Plan: Status post ORIF. Maintain a touchdown weightbearing restriction for 6 weeks. (2) Fracture of distal fibula Qualifiers: Encounter type: initial encounter Fracture type: closed Fracture morphology: unspecified fracture morphology Laterality: right Qualified Code(s): S82.831A - Other fracture of upper and lower end of right fibula, initial encounter for closed fracture Is this a current diagnosis for this admission?: Yes Plan: Being treated nonoperatively. Tentative plan will be for touchdown weightbearing restriction for 6 weeks. - Time Time Spent with patient: 15-24 minutes Anticipated discharge: SNF Within: when bed available
[2019-06-18 07:02] LABS: HEMATOCRIT 31.9 % (36.0-47.0); HEMOGLOBIN 11.1 g/dL (12.0-15.5); MEAN CORPUSCULAR HEMOGLOBIN 31.2 pg (27.0-33.4); MEAN CORPUSCULAR HGB CONC 34.8 g/dL (32.0-36.0); MEAN CORPUSCULAR VOLUME 90 fl (80-97); PLATELET COUNT 192 10^3/uL (150-450); RED BLOOD COUNT 3.55 10^6/uL (3.72-5.28); RED CELL DISTRIBUTION WIDTH 13.4 % (11.5-14.0); WHITE BLOOD COUNT 7.5 10^3/uL (4.0-10.5)
[2019-06-18 07:28] LABS: ANION GAP 8 (5-19); BLOOD UREA NITROGEN 11 mg/dL (7-20); CALCIUM 9.1 mg/dL (8.4-10.2); CARBON DIOXIDE 29 mmol/L (22-30); CHLORIDE 100 mmol/L (98-107); GLUCOSE 104 mg/dL (75-110); POTASSIUM 3.4 mmol/L (3.6-5.0)
[2019-06-18] MEDS: INSULIN LISPRO 100 UNIT/ML 3 ML VIAL SUBCUT SCH ×4 (07:50→21:16)
[2019-06-18] MEDS: OXYCODONE HCL IR 5 MG TABLET PO PRN (08:08)
--- NOTE | 2019-06-18 08:53 | PDOC CONSULTATION ---
Consultation Consult Date: 06/18/19 Provider Consulted: EDUARDO AGUILAR Consult reason:: Post-op pain; is established patient at [facility] for chronic pain as well History of Present Illness Admission Date/PCP: 06/16/19 09:23 PANCHO LOYD MD Patient complains of: Pain History of Present Illness: MAXINE VALADEZ is a 54 year old female who fell on 06/16/2019; reports rushing to cataract surgery and fell down brick steps. She broke both legs. RLE is casted, LLE was operated on yesterday 06/17/[address] Park. She reports she will be inpatient for 2-days before discharged to rehab facility because she won't be able to ambulate for a while. She reports significant pain and current medications are not being given on time, per her report, and she is normally on Oxycodone IR 15mg q4hr (max 6/day); she is a chronic pain patient at our office as well. She recently had lumbar fusion and hardware placement with Dr. Quiroz in April, with post-op complications and infection and reports being hospitalized for 3-weeks then. She reports feeling constipated, but is leaking watery stool; she has urinary retention post-op and requires catheterization. Past Medical History Cardiac Medical History: Denies: Myocardial Infarction, Hypertension Pulmonary Medical History: Denies: Asthma Neurological Medical History: Denies: Seizures Endocrine Medical History: Comment Only: Diabetes Mellitus Type 2 - Pre-diabetic GI Medical History: Denies: Hepatitis, Hiatal Hernia Musculoskeltal Medical History: Reports: Fibromyalgia Psychiatric Medical History: Reports: Depression Hematology: Denies: Anemia, Sickle Cell Disease Past Surgical History Past Surgical History: Reports: Cholecystectomy, Gastric Bypass Surgery, Orthopedic Surgery - back surgery, Tonsillectomy Denies: Amputation, Mastectomy, Pacemaker Social History Lives with: Spouse/Significant other Smoking Status: Never Smoker - Advance Directive Resuscitation Status: Full Code Family History Family History: Reviewed & Not Pertinent Parental Family History Reviewed: No Children Family History Reviewed: No Sibling(s) Family History Reviewed.: No Medication/Allergy Home Medications: Oxycodone HCl 15 mg PO Q4HP PRN MDD TAKE WITH GABAPENTIN 10/02/15 Trazodone HCl 100 mg PO QHS 10/02/15 Buspirone HCl [Buspar 10 mg Tablet] 15 mg PO QPM 06/10/19 Lamotrigine [Lamictal] 200 mg PO QPM 06/10/19 Benztropine Mesylate [Cogentin 1 mg Tablet] 1 mg PO QPM 06/16/19 Cariprazine HCl [Vraylar] 3 mg PO QPM 06/16/19 Clonazepam [Klonopin] 0.5 mg PO BIDP PRN 06/16/19 Clonazepam [Klonopin] 0.5 mg PO QPM 06/16/19 Cyclobenzaprine HCl [Flexeril 10 mg Tablet] 10 mg PO Q8HP PRN 06/16/19 Desvenlafaxine Succinate [Pristiq ER] 50 mg PO QPM 06/16/19 Famotidine [Pepcid 10 mg Tablet] 10 mg PO QPM 06/16/19 Gabapentin [Neurontin 300 mg Capsule] 300 mg PO Q4HP PRN MDD TAKE WITH OXYCODONE 06/16/19 Multivit-Minerals/Folic Acid [One-A-Day Vitacraves Gummie] 200 mcg PO QPM 06/16/19 Allergies/Adverse Reactions: amitriptyline Allergy (Severe, Verified 06/16/19 08:04) Renal failure atorvastatin calcium [From Lipitor] Allergy (Severe, Verified 06/16/19 08:04) pravastatin Allergy (Severe, Verified 06/16/19 08:04) ezetimibe [From Vytorin] Allergy (Intermediate, Verified 06/16/19 08:04) hydrochlorothiazide Allergy (Intermediate, Verified 06/16/19 08:04) simvastatin [From Vytorin] Allergy (Intermediate, Verified 06/16/19 08:04) sulfamethoxazole [From Bactrim] Allergy (Intermediate, Verified 06/16/19 08:04) Urticaria trimethoprim [From Bactrim] Allergy (Intermediate, Verified 06/16/19 08:04) Urticaria hydromorphone [From Dilaudid] Allergy (Mild, Verified 06/16/19 08:04) ITCHING meperidine HCl [From Demerol] Allergy (Verified 06/16/19 08:04) prochlorperazine [From Compazine] Adverse Reaction (Intermediate, Verified 06/16/19 08:04) Review of Systems Constitutional: ABSENT: fever(s), headache(s) Cardiovascular: ABSENT: chest pain Respiratory: ABSENT: cough, dyspnea Gastrointestinal: PRESENT: constipation. ABSENT: diarrhea, nausea, vomiting Genitourinary: PRESENT: difficulty urinating Musculoskeletal: PRESENT: back pain, other - BLE pain d/t recent injury and hugo hedy Neurological: ABSENT: abnormal gait, abnormal speech, confusion, frequent falls, lack of coordination Physical Exam Vital Signs: Temp Pulse Resp BP Pulse Ox 98.7 F 106 H 16 113/72 94 06/17/19 23:34 06/17/19 23:34 06/17/19 23:34 06/17/19 23:34 06/17/19 23:34 General appearance: PRESENT: no acute distress, obese, well-developed, well- nourished Head exam: PRESENT: atraumatic, normocephalic Eye exam: PRESENT: EOMI, PERRLA. ABSENT: conjunctival injection, scleral icterus Teeth exam: PRESENT: other - missing right central incisor Neck exam: PRESENT: full ROM Pulses: PRESENT: normal radial pulses GI/Abdominal exam: PRESENT: soft. ABSENT: distended, guarding, mass, tenderness Musculoskeletal exam: PRESENT: other - RLE in cast; LLE post-op dressing CDI; (+)edema and brusing left foot. ABSENT: ambulatory Neurological exam: PRESENT: alert, awake, oriented to person, oriented to place, oriented to time, oriented to situation, CN II-XII grossly intact, other - Sensation intact b/l feet; is able to wiggle toes Results Laboratory Results: 06/18/19 06:35 06/18/19 06:35 06/18/19 06/18/19 06:35 06:35 WBC 7.5 RBC 3.55 L Hgb 11.1 L Hct 31.9 L MCV 90 MCH 31.2 MCHC 34.8 RDW 13.4 Plt Count 192 Sodium 136.8 L Potassium 3.4 L Chloride 100 Carbon Dioxide 29 Anion Gap 8 BUN 11 Creatinine 0.47 L Est GFR ( Amer) > 60 Glucose 104 Calcium 9.1 Assessment & Plan - Diagnosis (1) Fractured tibia and fibula Qualifiers: Encounter type: initial encounter Fracture type: closed Laterality: left Qualified Code(s): S82.202A - Unspecified fracture of shaft of left tibia, initial encounter for closed fracture; S82.402A - Unspecified fracture of shaft of left fibula, initial encounter for closed fracture Is this a current diagnosis for this admission?: Yes (2) Fracture of distal fibula Qualifiers: Encounter type: initial encounter Fracture type: closed Fracture morphology: unspecified fracture morphology Laterality: right Qualified Code(s): S82.831A - Other fracture of upper and lower end of right fibula, initial encounter for closed fracture Is this a current diagnosis for this admission?: Yes - Plan Summary Plan Summary: 1. Patient is also a chronic pain patient, normally on Oxycodone 15mg q4hr. She is acutely post-op from significant injury with surgical repair. Current regimen not controlling pain. Will increase Oxycodone to 10mg q4hr scheduled, and leave IV morphine 2mg q2 prn severe pain 5/5. Would recommend d/c the IV Morphine tomorrow, 06/19/2019, and return to her chronic pain regimen of Oxycodone 15mg q4hr (max 6/d) before discharge to rehab facility. 2. Monitor constipation; consider addition of Colace and/or Miralax 3. Monitor urinary retention 4. Consider imaging of spine, MRI Lumbar, if urinary and bowel sx do not improve. She is post-op fusion with hardware in April and would want to r/o interruption of the surgical hardware or another injury of the spine.
[2019-06-18] MEDS: OXYCODONE HCL IR 5 MG TABLET PO SCH ×4 (10:41→21:17)
[2019-06-18] MEDS: BUSPIRONE HCL 10 MG TABLET PO SCH (17:11)
[2019-06-18] MEDS: FAMOTIDINE 20 MG TABLET PO SCH (17:13)
[2019-06-18] MEDS: BENZTROPINE MESYLATE 1 MG TABLET PO SCH (17:13)
[2019-06-18] MEDS: LAMOTRIGINE 100 MG TABLET PO SCH (17:13)
[2019-06-18] MEDS: MULTIVITAMINS W-IRON TABLET, CHEWABLE PO SCH (17:13)
[2019-06-18] MEDS: VENLAFAXINE HCL 75 MG CAP.SR.24H PO SCH (17:14)
[2019-06-18] MEDS ORDERED: (PENDING PHARMACY ID) (Lamotrigine [Lamictal] 200 MG) PO SCH (18:00)
[2019-06-18] MEDS ORDERED: (PENDING PHARMACY ID) (Desvenlafaxine Succinate [Pristiq] 50 MG) PO SCH (18:00)
[2019-06-18] MEDS ORDERED: FAMOTIDINE 10 MG PO SCH (18:00)
[2019-06-18] MEDS ORDERED: [UNRECOGNIZED DRUG - OTHER] PO SCH (18:00)
[2019-06-18] MEDS ORDERED: (PENDING PHARMACY ID) (Cariprazine Hcl [Vraylar] 3 MG) PO SCH ×2 (18:00)
[2019-06-18] MEDS ORDERED: MULTIVIT MINERALS PO SCH (18:00)
[2019-06-18] MEDS ORDERED: FOLIC ACID PO SCH (18:00)
[2019-06-18] MEDS: CYCLOBENZAPRINE HCL 10 MG TABLET PO PRN (20:07)
[2019-06-18] MEDS: CLONAZEPAM 1 MG TABLET PO SCH (21:16)
[2019-06-18] MEDS: TRAZODONE HCL 50 MG TABLET PO SCH (21:17)
[2019-06-19] MEDS: OXYCODONE HCL IR 5 MG TABLET PO SCH ×6 (01:14→21:17)
[2019-06-19] MEDS: INSULIN LISPRO 100 UNIT/ML 3 ML VIAL SUBCUT SCH ×4 (09:08→21:23)
--- NOTE | 2019-06-19 09:14 | PDOC PROGRESS REPORT ---
Subjective Progress Note for:: 06/19/19 Reason For Visit: S82.831A OTH FRACTURE OF UPPER AND LOWER END OF RI 54-year-old white female now postop day 2 status post ORIF of distal third left tib-fib fracture. Patient complaining of unrelenting pain, inadequate analgesia, and diarrhea. Physical Exam Vital Signs: Temp Pulse Resp BP Pulse Ox 37.2 C 102 H 16 118/70 96 06/18/19 23:00 06/18/19 23:00 06/18/19 23:00 06/18/19 23:00 06/19/19 05:52 Intake & Output 06/18/19 06/19/19 06/20/19 06:59 06:59 06:59 Intake Total 1900 221 Output Total 2100 Balance -200 221 Weight 91.6 kg 92 kg Physical Exam: Overweight middle-aged white female lying in a hospital bed. Patient in mild distress. She is alert, oriented, and appropriate. General appearance: PRESENT: mild distress, obese Head exam: PRESENT: normocephalic Respiratory exam: PRESENT: unlabored Cardiovascular exam: PRESENT: RRR Pulses: PRESENT: +1 pedal pulses bilateral Vascular exam: PRESENT: normal capillary refill GI/Abdominal exam: PRESENT: soft Rectal exam: PRESENT: deferred Extremities exam: PRESENT: other - Left extremity in a compressive wrap. Some evidence of drainage from the patellar incision site which appears to be dry at this point. Distally there is modest edema but brisk capillary refill and motor function is intact great toe flexion extension. Right lower extremity is in a p osterior splint. Skin exam: PRESENT: dry, intact, warm. ABSENT: cyanosis, rash Results Laboratory Results: 06/18/19 06:35 06/18/19 06:35 Impressions: Chest X-Ray 06/16/19 00:00 IMPRESSION: ILL-DEFINED DENSITY IN THE MEDIAL RIGHT UPPER LOBE. POSSIBLE DEVELOPING INFILTRATE. Ankle X-Ray 06/17/19 00:00 IMPRESSION: IMAGE(S) OBTAINED DURING PROCEDURE. Fluoroscopy 06/17/19 00:00 IMPRESSION: IMAGE(S) OBTAINED DURING PROCEDURE. Status: Imported from PACS Assessment & Plan - Diagnosis (1) Fractured tibia and fibula Qualifiers: Encounter type: initial encounter Fracture type: closed Laterality: left Qualified Code(s): S82.202A - Unspecified fracture of shaft of left tibia, initial encounter for closed fracture; S82.402A - Unspecified fracture of shaft of left fibula, initial encounter for closed fracture Is this a current diagnosis for this admission?: Yes Plan: Mobilized with physical therapy and a touchdown weightbearing restriction. Patient can be transferred to a fdc facility when bed available. (2) Fracture of distal fibula Qualifiers: Encounter type: initial encounter Fracture type: closed Fracture morphology: unspecified fracture morphology Laterality: right Qualified Code(s): S82.831A - Other fracture of upper and lower end of right fibula, initial encounter for closed fracture Is this a current diagnosis for this admission?: Yes Plan: Maintain a touchdown weightbearing restriction. (3) Inadequate pain control Is this a current diagnosis for this admission?: Yes Plan: [facility] pain management has been consulted and is controlling her analgesic medications. (4) Diarrhea Is this a current diagnosis for this admission?: Yes Plan: Patient with new onset diarrhea. Stool to be sent for C. difficile. - Time Time Spent with patient: 15-24 minutes Anticipated discharge: SNF Within: when bed available
--- NOTE | 2019-06-19 17:22 | PDOC TRANSFER SUMMARY ---
Impression - Admit/DC Date/PCP Admission Date/Primary Care Provider: 06/16/19 09:23 PANCHO LOYD MD Discharge Date: 06/20/19 - Discharge Diagnosis (1) Fractured tibia and fibula Is this a current diagnosis for this admission?: Yes (2) Fracture of distal fibula Is this a current diagnosis for this admission?: Yes (3) Inadequate pain control Is this a current diagnosis for this admission?: Yes (4) Diarrhea Is this a current diagnosis for this admission?: Yes - Additional Information Resuscitation Status: Full Code Discharge Diet: Regular Discharge Activity: Other - TDWB BLE Referrals: [facility] [Outside] CYNTHIA CHAN MD [ACTIVE STAFF] - Home Medications: Oxycodone HCl 15 mg PO Q4HP PRN MDD TAKE WITH GABAPENTIN 10/02/15 Trazodone HCl 100 mg PO QHS 10/02/15 Buspirone HCl [Buspar 10 mg Tablet] 15 mg PO QPM 06/10/19 Lamotrigine [Lamictal] 200 mg PO QPM 06/10/19 Benztropine Mesylate [Cogentin 1 mg Tablet] 1 mg PO QPM 06/16/19 Cariprazine HCl [Vraylar] 3 mg PO QPM 06/16/19 Clonazepam [Klonopin] 0.5 mg PO BIDP PRN 06/16/19 Clonazepam [Klonopin] 0.5 mg PO QPM 06/16/19 Cyclobenzaprine HCl [Flexeril 10 mg Tablet] 10 mg PO Q8HP PRN 06/16/19 Desvenlafaxine Succinate [Pristiq ER] 50 mg PO QPM 06/16/19 Famotidine [Pepcid 10 mg Tablet] 10 mg PO QPM 06/16/19 Gabapentin [Neurontin 300 mg Capsule] 300 mg PO Q4HP PRN MDD TAKE WITH OXYCODONE 06/16/19 Multivit-Minerals/Folic Acid [One-A-Day Vitacraves Gummie] 200 mcg PO QPM 06/16/19 History of Present Illiness History of Present Illness: Patient is a 54 yo WF who fell down 3 steps on the day of admission sustaining R lateral malleolus and L distal tib fib fractures. Hospital Course Hospital Course: Patient is admitted to the Ortho service for fracture managment. A decision is made to treat the R ankle non operatively. She is taken to the OR and undergoes an ORIF of the L tib/fib fracture. She is returned to the floor and seen by pain management as well as physical therapy. Physical Exam Vital Signs: Temp Pulse Resp BP Pulse Ox 37.2 C 102 H 16 118/70 96 06/18/19 23:00 06/18/19 23:00 06/18/19 23:00 06/18/19 23:00 06/19/19 05:52 Intake & Output 06/18/19 06/19/19 06/20/19 06:59 06:59 06:59 Intake Total 1900 221 Output Total 2100 Balance -200 221 Weight 91.6 kg 92 kg General appearance: PRESENT: mild distress, obese Head exam: PRESENT: normocephalic Respiratory exam: PRESENT: unlabored Cardiovascular exam: PRESENT: RRR Pulses: PRESENT: +1 pedal pulses bilateral Vascular exam: PRESENT: normal capillary refill Extremities exam: PRESENT: other - RLE in posterior splint. LLE dressing changed Neurological exam: PRESENT: alert, awake, oriented to person, oriented to place, oriented to time, oriented to situation. ABSENT: motor sensory deficit Psychiatric exam: PRESENT: appropriate affect, normal mood. ABSENT: homicidal ideation, suicidal ideation Skin exam: PRESENT: dry, intact, warm. ABSENT: cyanosis, rash Results Laboratory Results: WBC 7.5 10^3/uL (4.0-10.5) 06/18/19 06:35 RBC 3.55 10^6/uL (3.72-5.28) L 06/18/19 06:35 Hgb 11.1 g/dL (12.0-15.5) L 06/18/19 06:35 Hct 31.9 % (36.0-47.0) L 06/18/19 06:35 MCV 90 fl (80-97) 06/18/19 06:35 MCH 31.2 pg (27.0-33.4) 06/18/19 06:35 MCHC 34.8 g/dL (32.0-36.0) 06/18/19 06:35 RDW 13.4 % (11.5-14.0) 06/18/19 06:35 Plt Count 192 10^3/uL (150-450) 06/18/19 06:35 Sodium 136.8 mmol/L (137-145) L 06/18/19 06:35 Potassium 3.4 mmol/L (3.6-5.0) L 06/18/19 06:35 Chloride 100 mmol/L (98-107) 06/18/19 06:35 Carbon Dioxide 29 mmol/L (22-30) 06/18/19 06:35 Anion Gap 8 (5-19) 06/18/19 06:35 BUN 11 mg/dL (7-20) 06/18/19 06:35 Creatinine 0.47 mg/dL (0.52-1.25) L 06/18/19 06:35 Est GFR ( Amer) > 60 (>60) 06/18/19 06:35 Est GFR (MDRD) Non-Af > 60 (>60) 06/18/19 06:35 Glucose 104 mg/dL (75-110) 06/18/19 06:35 POC Glucose 171 mg/dL (70-110) H 06/19/19 12:52 Calcium 9.1 mg/dL (8.4-10.2) 06/18/19 06:35 Impressions: Ankle X-Ray 06/16/19 00:00 IMPRESSION: Acute displaced and angulated fractures of the distal tibia and fibula metaphysis. No involvement of the ankle mortise. Chest X-Ray 06/16/19 00:00 IMPRESSION: ILL-DEFINED DENSITY IN THE MEDIAL RIGHT UPPER LOBE. POSSIBLE DEVELOPING INFILTRATE. Ankle X-Ray 06/16/19 08:37 IMPRESSION: Subtle nondisplaced oblique fracture distal fibula. Associated small joint effusion and soft tissue swelling. The ankle mortise is intact. Ankle X-Ray 06/17/19 00:00 IMPRESSION: IMAGE(S) OBTAINED DURING PROCEDURE. Fluoroscopy 06/17/19 00:00 IMPRESSION: IMAGE(S) OBTAINED DURING PROCEDURE. Plan Plan of Treatment: TDWB x 6 weeks. F/U Dr Chan CC4S 2 weeks Time Spent: Less than 30 Minutes Stroke Is this a Stroke Patient?: No Stroke Pt being discharged on Anti-thrombolytic therapy?: Yes Acute Heart Failure - Is this a Heart Failure Patient?: No
[2019-06-19] MEDS: LAMOTRIGINE 100 MG TABLET PO SCH (18:12)
[2019-06-19] MEDS: FAMOTIDINE 20 MG TABLET PO SCH (18:12)
[2019-06-19] MEDS: BUSPIRONE HCL 10 MG TABLET PO SCH (18:12)
[2019-06-19] MEDS: MULTIVITAMINS W-IRON TABLET, CHEWABLE PO SCH (18:12)
[2019-06-19] MEDS: BENZTROPINE MESYLATE 1 MG TABLET PO SCH (18:12)
[2019-06-19] MEDS: VENLAFAXINE HCL 75 MG CAP.SR.24H PO SCH (18:52)
[2019-06-19] MEDS: CYCLOBENZAPRINE HCL 10 MG TABLET PO PRN (20:08)
[2019-06-19] MEDS: CLONAZEPAM 1 MG TABLET PO SCH (21:17)
[2019-06-19] MEDS: TRAZODONE HCL 50 MG TABLET PO SCH (21:23)
[2019-06-19] MEDS: GABAPENTIN 300 MG CAPSULE PO PRN (23:29)
[2019-06-20] MEDS: OXYCODONE HCL IR 5 MG TABLET PO SCH ×4 (01:06→13:48)
[2019-06-20 07:56] VITALS: BP 117/70
[2019-06-20] MEDS: CYCLOBENZAPRINE HCL 10 MG TABLET PO PRN (08:37)
[2019-06-20] MEDS: INSULIN LISPRO 100 UNIT/ML 3 ML VIAL SUBCUT SCH ×2 (08:37→12:45)
[2019-06-20] MEDS: GABAPENTIN 300 MG CAPSULE PO PRN (12:46)
== END 2019-06-20 14:35 | DRG 494 ==
LOC: ER 07:56 → EH 09:23 → 4S 10:20
PROVIDERS: ADMIT Orthopaedic Surgery; ATTEND Orthopaedic Surgery
PROC: 0QHH34Z Insertion of Internal Fixation Device into Left Tibia, Percutaneous Approach (ICD-10-PCS; 2019-06-17)
PROC: 0QSK04Z Reposition Left Fibula with Internal Fixation Device, Open Approach (ICD-10-PCS; principal; 2019-06-17 09:45)
DX: S82.302A Unspecified fracture of lower end of left tibia, initial encounter for closed fracture (principal); S82.832A Other fracture of upper and lower end of left fibula, initial encounter for closed fracture; S82.434A Nondisplaced oblique fracture of shaft of right fibula, initial encounter for closed fracture; W10.8XXA Fall (on) (from) other stairs and steps, initial encounter; I73.00 Raynaud's syndrome without gangrene; Y92.008 Other place in unspecified non-institutional (private) residence as the place of occurrence of the external cause; R19.7 Diarrhea, unspecified; G89.11 Acute pain due to trauma; E13.36 Other specified diabetes mellitus with diabetic cataract; H26.9 Unspecified cataract; M79.7 Fibromyalgia; F32.9 Major depressive disorder, single episode, unspecified; G89.29 Other chronic pain; Z90.49 Acquired absence of other specified parts of digestive tract; Z88.5 Allergy status to narcotic agent; Z98.84 Bariatric surgery status; Z98.890 Other specified postprocedural states; Z79.891 Long term (current) use of opiate analgesic
CPT/HCPCS: 01480; 36415; 71045; 80048; 82962; 85027; 93005; 93010; 99285; C1713; C1769; C9290; J0131; J0690; J1100; J1815; J1885; J2250; J2270; J2405; J2550; J2704; J3010; J3490; J7060; J7120; S0119

== ENCOUNTER 2019-11-06 07:23 | Day surgery (SDC) | payer MEDICARE ==
[2019-11-06 09:24] LABS: INTERNATIONAL RATION (INR) 1.04; PROTHROMBIN TIME 13.6 SEC (11.4-15.4)
[2019-11-06] MEDS ORDERED: OXYCODONE-ACETAMINOPHEN 5-325 MG TABLET ONE (12:00)
[2019-11-06] MEDS ORDERED: OXYCODONE-ACETAMINOPHEN 5-325 MG TABLET PO PRN ×2 (12:03)
[2019-11-06] MEDS ORDERED: ONDANSETRON HCL INJ/PF 4 MG/2 ML SDV ONE (12:53)
[2019-11-06] MEDS ORDERED: ONDANSETRON HCL INJ/PF 4 MG/2 ML SDV IV ONE (13:30)
--- NOTE | 2019-11-06 13:35 | RADIOLOGY REPORT (SQ) ---
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 FLUOROSCOPY TIME: 1.6 minutes. 12 images saved to PACS. TECHNIQUE: Fluoroscopic guided lumbar myelogram. LIMITATIONS: None. PROCEDURE: After written consent and assessment were obtained, the patient was brought into the fluo roscopy room and placed prone on the table. The patient's lower back was prepped in a sterile fashio n and an entry site was selected under live fluoroscopic guidance. The entry site was anesthetized wi th 1% lidocaine. The spinal needle was advanced through the skin and into the thecal sac at the leve l of L2-L3. Contrast was injected into the thecal sac. Following the procedure the needle was remov ed and a sterile bandage was placed of the site. CONTRAST: 15 mL Omnipaque 180.. IMAGES ACQUIRED: 12 images. FINDINGS: Contrast is present in the thecal sac. IMPRESSION: LUMBAR MYELOGRAM PERFORMED FOR CT MYELOGRAPHY. PLEASE REFER TO THE REPORT OF THE CT MYE LOGRAM FOR DETAILED DIAGNOSTIC EVALUATION. COMMENT: Patient medication list reviewed: Yes- Quality ID# [id number]:Eligible professional attests to doc umenting in the medical record they obtained, updated, or reviewed the patient's current medications. . Quality ID 145: Final reports for procedures using fluoroscopy that document radiation exposure matthew eva, or exposure time and number of fluorographic images (if radiation exposure indices are not avail able) TECHNICAL DOCUMENTATION: JOB ID: [id number] 2010 [employer]- All Rights Reserved Reading location - IP/workstation name: [email or web address]
[2019-11-06 13:47] VITALS: BP 131/79
--- NOTE | 2019-11-06 15:05 | RADIOLOGY REPORT (SQ) ---
EXAM DESCRIPTION: CT LUMBAR SPINE WITH IMAGES COMPLETED DATE/TIME: 11/06/2019 11:25 am REASON FOR STUDY: LOW BACK PAIN M54.5 LOW BACK PAIN Z79.01 JAIL (CURRENT) USE OF ANTICOAGULAN TS COMPARISON: Fluoroscopic myelogram films earlier today Lumbar spine plain films 07/26/2016 TECHNIQUE: Axial images acquired through the lumbar spine without intravenous contrast. Images revi ewed with lung, soft tissue and bone windows. Reconstructed coronal and sagittal MPR images reviewed . All images stored on PACS. All CT scanners at this facility use dose modulation, iterative reconstruction, and/or weight based d osing when appropriate to reduce radiation dose to as low as reasonably achievable (ALARA). [facility]: Dose Right [facility]: CareDose [facility]: Dose Right [facility]: Teradose 4D [facility]: auctionpoint RADIATION DOSE: CT Rad equipment meets quality standard of care and radiation dose reduction techniq ues were employed. CTDIvol: 35.3 mGy. DLP: 1124 mGy-cm. mGy. LIMITATIONS: None. FINDINGS: SEGMENTATION: Normal. No transitional anatomy. ALIGNMENT: Normal. VERTEBRAL BODIES: Chronic appearing less than 25% upper endplate compression at T12. Central upper endplate depressions at L1, L2 without overall vertebral body loss of height. These ar e chronic. DISCS: The T10-11, T11-12, T12-L1, L1-2, L2-3 levels are unremarkable. At L3-4, mild bilateral facet and ligament hypertrophy is present with minimal posterior disc bulging . No significant central or foraminal stenosis. At L4-5, patient is post fusion with metallic disc spacer and transpedicular screws/ dorsal fixation plates. Mild diffuse posterior disc bulging is present without central canal narrowing. Mild bilate ral inferior foraminal narrowing is present without exiting L4 nerve root impingement. At L5-S1, minimal posterior disc bulging is present. No significant facet arthropathy. No central o r foraminal stenosis. PEDICLES, TRANSVERSE PROCESSES: No acute findings FACETS, POSTERIOR ELEMENTS: No acute findings. HARDWARE: Disc space prosthesis at L4-5 with bilateral transpedicular screws and dorsal fixation plat es VISUALIZED RIBS: No fractures. SOFT TISSUES: No significant or acute finding in adjacent soft tissues. OTHER: No other significant finding. IMPRESSION: Post fusion at L4-5 without significant central or foraminal encroachment. Chronic appearing 25% upper endplate compression deformity at T12, chronic appearing central upper en dplate depressions at L1 and L2 without overall vertebral body loss of height. TECHNICAL DOCUMENTATION: JOB ID: [id number] Quality ID # [id number]: Final reports with documentation of one or more dose reduction techniques (e.g., Au tomated exposure control, adjustment of the mA and/or kV according to patient size, use of iterative reconstruction technique) 2010 [employer]- All Rights Reserved Reading location - IP/workstation name: [email or web address]
== END 2019-11-06 13:35 | disposition home or self-care (01) ==
LOC: RAD 07:23
PROVIDERS: ATTEND Orthopaedic Surgery
DX: M54.5 Low back pain (principal); Z79.01 Long term (current) use of anticoagulants; E11.9 Type 2 diabetes mellitus without complications; I10 Essential (primary) hypertension; G89.29 Other chronic pain; M54.9 Dorsalgia, unspecified; Z88.5 Allergy status to narcotic agent; Z88.8 Allergy status to other drugs, medicaments and biological substances; Z79.899 Other long term (current) drug therapy; Z79.891 Long term (current) use of opiate analgesic
CPT/HCPCS: 36415; 85610; 85730; 72265; 72132; A9270; J2405

== ENCOUNTER → 2019-11-17 | Outpatient (CLI) | payer MEDICARE ==
[2019-11-17 15:39] LABS: ALBUMIN 3.6 g/dL (3.5-5.0); ALKALINE PHOSPHATASE 153 U/L (38-126); ANION GAP 5 (5-19); ASPARTATE AMINO TRANSFERASE 25 U/L (14-36); BILIRUBIN,TOTAL 0.5 mg/dL (0.2-1.3); BLOOD UREA NITROGEN 13 mg/dL (7-20); C-REACTIVE PROTEIN 6.5 mg/L (<10.0); CALCIUM 9.3 mg/dL (8.4-10.2); CARBON DIOXIDE 28 mmol/L (22-30); CHLORIDE 103 mmol/L (98-107); GLUCOSE 115 mg/dL (75-110); POTASSIUM 4.3 mmol/L (3.6-5.0); TOTAL PROTEIN 6.2 g/dL (6.3-8.2)
[2019-11-18 15:08] LABS: ABSOLUTE EOSINOPHILS # (AUTO) 0.2 10^3/uL (0.0-0.6); ABSOLUTE LYMPHOCYTES (AUTO) 1.7 10^3/uL (0.5-4.7); ABSOLUTE MONOCYTES (AUTO) 0.9 10^3/uL (0.1-1.4); ABSOLUTE NEUT (AUTO) 3.6 10^3/uL (1.7-8.2); BASOPHILS % (AUTO) 0.6 % (0-2); EOSINOPHILS % (AUTO) 2.6 % (0-6); HEMATOCRIT 38.1 % (36.0-47.0); HEMOGLOBIN 13.2 g/dL (12.0-15.5); LYMPHOCYTES % (AUTO) 26.1 % (13-45); MEAN CORPUSCULAR HEMOGLOBIN 31.1 pg (27.0-33.4); MEAN CORPUSCULAR HGB CONC 34.6 g/dL (32.0-36.0); MEAN CORPUSCULAR VOLUME 90 fl (80-97); MONOCYTES % (AUTO) 14.4 % (3-13); PLATELET COUNT 264 10^3/uL (150-450); RED BLOOD COUNT 4.25 10^6/uL (3.72-5.28); RED CELL DISTRIBUTION WIDTH 12.6 % (11.5-14.0); SEGMENTED NEUTROPHILS % (AUTO) 56.3 % (42-78); TOTAL CELLS COUNTED % (AUTO) 100 %; WHITE BLOOD COUNT 6.4 10^3/uL (4.0-10.5)
[2019-11-18 15:16] LABS: INTERNATIONAL RATION (INR) 1.01; PROTHROMBIN TIME 13.3 SEC (11.4-15.4)
[2019-11-18 15:41] LABS: ERYTHROCYTE SEDIMENTATION RATE 26 mm/hr (0-30)
== END ==
LOC: OD 13:39
PROVIDERS: ATTEND Orthopaedic Surgery
DX: M54.5 Low back pain (principal)
CPT/HCPCS: 36415; 80053; 85025; 85610; 85652; 85730; 86140

== ENCOUNTER 2020-04-06 10:16 | Day surgery (SDC) | payer MEDICARE ==
[~2020-04-06 10:16] MED LIST changes: +CHONDR SU A NA/HYALUR INTRAOC KIT (SURGICARE) ONE; +DORZOLAMIDE HCL 2%/TIMOLOL MALEAT 0.5% OPH SOLN 10 ML OS PRN; +EPINEPHRINE INJ/PF 1 MG/1 ML AMPULE ONE; +KETOROLAC TROMETHAMINE 0.45% 4 DROP/0.4 ML DROPERETTE OS PRN; -LIDOCAINE 1% INJ-PF (10 MG/ML) 30 ML SDV ONE; +LIDOCAINE 1%/PHENYLEPHRINE 1.5% 1 ML VIAL ONE; +PREDNISOLONE ACETATE 1% OPH SUSP 5 ML OS PRN
[2020-04-06] MEDS ORDERED: ONDANSETRON HCL INJ/PF 4 MG/2 ML SDV ONE (10:19)
[2020-04-06] MEDS ORDERED: MIDAZOLAM 2 MG/2 ML INJ ONE ×2 (10:19→10:44)
[2020-04-06] MEDS ORDERED: FENTANYL CITRATE INJ/PF 100 MCG/2 ML AMPUL ONE (10:20)
[2020-04-06] MEDS: TETRACAINE HCL 0.5% OPH SOLN 4 ML OS PRN ×3 (10:40→11:06)
[2020-04-06] MEDS: BESIFLOXACIN HCL 0.6% OPH SUSP 5 ML BOTTLE OS PRN ×3 (10:41→11:23)
[2020-04-06] MEDS: CYCLOPENTOLATE 0.2%/PHENYLEPHRINE 1% OPH SOLN 2 ML OS PRN ×3 (10:41→11:01)
[2020-04-06] MEDS: TROPICAMIDE 1% OPH SOLN 15 ML OS PRN ×3 (10:41→11:01)
--- NOTE | 2020-04-06 11:34 | Operative Report ---
Operative Report-[facility] Operative Report: DATE OF SURGERY: April 06, 2020 PREOPERATIVE DIAGNOSIS: NUCLEAR CATARACT, LEFT EYE. POSTOPERATIVE DIAGNOSIS: NUCLEAR CATARACT, LEFT EYE. PROCEDURE PERFORMED: PHACOEMULSIFICATION WITH POSTERIOR CHAMBER INTRAOCULAR LENS IMPLANT, LEFT EYE. SURGEON: Sujit Estevez DO MEDICATIONS AND ANESTHESIA: Versed: IV Versed Tetracaine drops: 1 to 2 drops given as needed COMPLICATION: None INDICATIONS FOR SURGERY: Medical necessity: Best corrected visual acuity worse than 20/40 secondary to cataracts with impairment of ability to carry out needs or desired activities, blurred vision, visual distortion, reduced contrast sensitivity and/or glare with association functional impairment and supporting documentation/testing, and cataracts causing symptomatic impairment of visual functions not corrected with tolerable changes in glasses or contact lenses interfering with activities of daily life. PROCEDURE: Consent: The risks, benefits and alternatives of this procedures was discussed with the patient. The patient read and signed the consent forms, was identified and was seated in the exam chair. IOL: MX 60 E 18.0 IOL Diopters: Phacoemulsification with posterior chamber intraocular lens implant: The face was prepped with 5% povidone iodine solution, and a few drops of 5% povidone iodine solution was instilled into the inferior fornix. A non-fenestrated drape was placed over the eye and the lids were parted with the speculum. A paracentesis was made with a 15 degree blade, and 1% lidocaine MPF followed by viscoelastic was injected into the anterior chamber. A 2.4 mm metal micro- keratome was used to create a temporal clear corneal incision. A circular anterior capsulorrhexis was created, followed by hydro-dissection and hydro- delineation. The phacoemulsification hand piece was inserted and the nucleus was removed with the Phaco chop technique. The irrigation-aspiration hand piece was used to remove the residual cortex, and vacuum the posterior capsule. The capsular bag was inflated and viscoelastic and the above-mentioned IOL was injected into the eye with care to insert both leaning and trailing haptics in the capsular bag. The irrigation/aspiration hand piece was reinserted to remove residual viscoelastic from the capsular bag and anterior chamber. The corneal incision was hydrated, and anterior chamber was inflated with sterile BSS via the paracentesis site, and found to be watertight. Postop medication:1 drop of prednisolone into operative by followed by 1 drop of Cosopt into operative eye followed by 1 drop of Besivance intraoperative by Other:
--- OUTSIDE RECORDS SUMMARY | 2020-04-07 18:27 | XMS REPORT ---
:1965 [facility] Address [facility] [address] [place] [id number] Care Team Providers Name Role Phone Jorge Kirk Attending Clinician Unavailable Jorge Kirk Attending Clinician Unavailable MD Bobbi Davison Attending Clinician Unavailable MD Bobbi Davison Attending Clinician Unavailable REG Attending Clinician Unavailable MD Ashkan Admitting Clinician Unavailable Allergies, Adverse Reactions, Alerts Allergy Allergy Status Severity Reaction(s) Onset Inactive Treating C omments Name Type Date Date Clinician sulfamethox Allergy to Active Moderate RASH azole Substance (H356200253 ) trimethopri Allergy to Active Moderate RASH m Substance (Z311472665 ) pravastatin Allergy to Active Moderate MUSCLE (T679054431 Substance WEAKNESS ) simvastatin Allergy to Active Moderate MUSCLE (H651800929 Substance WEAKNESS ) meperidine Allergy to Active Moderate VOMIT (P706775700 Substance ) atorvastati Allergy to Active Moderate MUSCLE n Substance WEAKNESS ([id number] ) ezetimibe Allergy to Active Moderate MUSCLE (D717018758 Substance WEAKNESS ) Amitriptyli Allergy to Active Myalgias ne substance (muscle pain) Bactrim Allergy to Active Rash substance Compazine Allergy to Active Vomiting substance Demerol Allergy to Active Vomiting substance Hydrochloro Allergy to Active thiazide substance Morphine Allergy to Inactive Hives substance Statins-hmg Allergy to Active Myalgias -coa substance (muscle Reductase pain) Inhibitors Vytorin Allergy to Active Myalgias substance (muscle pain) prochlorper Allergy to Active Moderate VOMIT azine Substance ([id number] ) Medications Ordered Filled Start Stop Current Ordering Indication Dosage Frequency Signature Comments Components Medication Medication Date Date Medication? Clinician (SIG) Name Name cefadroxil No cefadroxil 500 mg 500 mg capsule capsule Take 1 Take 1 capsule capsule twice a day twice a by oral day by route as oral route directed as for 10 directed days. for 10 days. fluconazole No fluconazol 100 mg e 100 mg tablet Take tablet 1 tablet Take 1 twice a day tablet by oral twice a route as day by directed oral route for 10 as days. directed for 10 days. gabapentin No gabapentin 300 mg 300 mg capsule capsule Take 1 cap Take 1 cap by mouth by mouth daily daily lamotrigine No lamotrigin 200 mg e 200 mg tablet Take tablet 1 tab by Take 1 tab mouth daily by mouth daily metformin No metformin 500 mg 500 mg tablet Take tablet 1 tab by Take 1 tab mouth daily by mouth daily ondansetron No ondansetro 8 mg n 8 mg disintegrat disintegra ing tablet ting Place [address] 1 every 8 tablet hours by every 8 translingua hours by l route as translingu needed. al route as needed. Pristiq 50 No 1 BID Pristiq 50 mg mg tablet,exte tablet,ext nded ended release release Take 1 Take 1 tablet tablet twice a day twice a by oral day by route. oral route. Augmentin No 1 Q12H Augmentin 875 mg-125 875 mg-125 mg tablet mg tablet Take 1 Take 1 tablet tablet every 12 every 12 hours by hours by oral route oral route as directed as for 10 directed days. for 10 days. Diflucan No 1 BID Diflucan 100 mg 100 mg tablet Take tablet 1 tablet Take 1 twice a day tablet by oral twice a route as day by directed oral route for 10 as days. directed for 10 days. amoxicillin No amoxicilli 875 n 875 mg-potassiu mg-potassi m um clavulanate clavulanat 125 mg e 125 mg tablet Take tablet 1 tablet Take 1 every 12 tablet hours by every 12 oral route hours by as directed oral route for 10 as days. directed for 10 days. buspirone No buspirone 15 mg 15 mg tablet tablet cefazolin 1 No cefazolin gram 1 gram solution solution for for injection injection cyclobenzap No cyclobenza rine 10 mg anup 10 tablet mg tablet desvenlafax No desvenlafa ine xine succinate succinate ER 50 mg ER 50 mg tablet,exte tablet,ext nded ended release 24 release 24 hr Take 1 hr Take 1 tablet tablet twice a day twice a by oral day by route. oral route. diclofenac No diclofenac 1 % topical 1 % gel topical gel moxifloxaci No moxifloxac n 0.5 % eye in 0.5 % drops eye drops oxycodone-a No oxycodone- cetaminophe acetaminop n 5 mg-325 hen 5 mg tablet mg-325 mg tablet prednisolon No prednisolo e acetate 1 ne acetate % eye 1 % eye drops,suspe drops,susp nsion ension clotrimazol No clotrimazo e-betametha le-betamet sone 1 hasone 1 %-0.05 % %-0.05 % topical topical cream cream gabapentin No gabapentin 400 mg 400 mg capsule capsule hydromorpho No hydromorph ne 2 mg one 2 mg tablet tablet morphine 15 No morphine mg 15 mg immediate immediate release release tablet tablet morphine ER No morphine 30 mg ER 30 mg tablet,exte tablet,ext nded ended release release pregabalin No pregabalin 200 mg 200 mg capsule capsule Benztropine Yes 1 Twice Per Mesylate Day (Cogentin*) 1 Mg Tablet Buspirone Yes 10 Twice Per Hcl Day (Buspar*) 10 Mg Tablet Cariprazine Yes 3 At Bedtime Hydrochlori de (Vraylar) 3 Mg Capsule Cholecalcif Yes 1000 At Bedtime james (Vitamin D Tab*) 1,000 Unit Tab Clonazepam Yes .5 Twice Per (Klonopin*) Day 0.5 Mg Tablet Desvenlafax Yes 100 At Bedtime ine Succinate (Pristiq*) 100 Mg Tab.er.24h Diclofenac Yes 1 Four Times Sodium Daily as (Voltaren needed for Gel*) 100 Pain Gm Tube Fentanyl Yes 1 Every (Duragesic* Other Day ) 100 Mcg/Hr Patch Gabapentin Yes 600 At Bedtime (Neurontin* ) 600 Mg Tablet Ibuprofen Yes 200 Every 8 (Motrin Hours as Tab*) 200 needed for Mg Tab Pain Lamotrigine Yes 200 At Bedtime (Lamictal*) 200 Mg Tablet Metformin Yes 1000 At Bedtime Hcl (Glucophage *) 1,000 Mg Tablet Multivitami Yes 1 At Bedtime ns/Minerals * (Multivitam ins/Mineral s Tab*) 400 Mcg Tablet Naproxen Yes 1 Twice Per Sodium Day as (Aleve) 220 needed for Mg Tablet Pain [place]-3 Yes 1000 At Bedtime Fatty Acids Cap* (Fish Oil Cap*) 1 Each Capsule Oxycodone Yes 15 Every 4 Hcl Hours as (Roxicodone needed for *) 15 Mg Pain Tablet Pseudoephed Yes 15 Every 4 To rine Hcl 6 Hours as (Sudafed needed for Tab*) 30 Mg Congestion Tablet Ranitidine Yes 75 At Bedtime Hcl (Zantac Tab*) 75 Mg Tablet Trazodone Yes 200 Once Per Hcl Day At (Desyrel Bedtime Ir*) 100 Mg Tablet Problems Condition Condition Condition Status Onset Resolution Last Treatin g Comments Name Details Category Date Date Treatment Clinician Date Labyrinthit Labyrinthit Problem Active 2019-05 is is 0-12 00:00: 00 Seasonal Seasonal Problem Active 2019-05 allergy Allergy 0-12 00:00: 00 Hernia of Hernia of Problem Active 2019-05 abdominal Abdominal 0-12 cavity Cavity 00:00: 00 Degeneratio Degeneratio Problem Active 2019- n of lumbar n of Lumbar 6-27 interverteb Interverteb 00:00: ral disc ral Disc 00 Low back Low Back Problem Active 2019- pain Pain 6-27 00:00: 00 Lumbago Lumbago Problem Active with with 6-27 sciatica Sciatica 00:00: 00 Infection Infection Problem Active of lumbar of Lumbar 6-27 spine Spine 00:00: 00 Acquired Acquired Problem Active 2019- spondylolis Spondylolis 6-27 thesis thesis 00:00: 00 History of History of Problem Active 2017-05 calculus of Calculus of 0-15 kidney Kidney 00:00: 00 Diabetes Diabetes Problem Active 2018- mellitus Mellitus 7-10 00:00: 00 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 00 Incisional Incisional Problem Active 2018- hernia Hernia 7-10 00:00: 00 Chronic Chronic Problem Active 2018- back pain Back Pain 7-10 00:00: 00 Procedures Procedure Date / Time Performed Performing Clinician Devic e RADIOLOGIC EXAM TIBIA AND FIBULA 2 2020-02-09 00:00:[address], lower leg, w/o contrast 2020-02-09 00:00:00 XR, lumbar spine 2019-10-29 00:00:00 CT, myelogram, lumbar spine 2019-10-29 00:00:00 RADIOLOGIC EXAM, SPINE, LUMBOSACRAL 2019-10-29 00:00:00 2 OR 3 VIEWS RADIOLOGIC EXAM, KNEE; COMPLETE, 4 2019-10-08 00:00:00 OR MORE VIEWS RADIOLOGIC EXAM ANKLE 2 VIEWS 2019-10-08 00:00:00 RADIOLOGIC EXAM ANKLE 2 VIEWS 2019-07-08 00:00:00 Panniculectomy (Surg) 2018-03-14 00:00:00 Panniculectomy 2018-03-14 00:00:00 WILFRIDO HINDS Colonoscopy 2014-05-27 00:00:00 GASTRIC BYPASS FOR OBESITY 2010-05-27 00:00:00 Foot Surgery 1997-05-27 00:00:00 DILATION AND CURETTAGE 1990-05-27 00:00:00 HERNIA REPAIR W/MESH 1988-05-27 00:00:00 Gallbladder Surgery 1988-05-27 00:00:00 DILATION AND CURETTAGE 1988-05-27 00:00:00 Tonsillectomy 1984-05-27 00:00:00 FRAGMENTING OF KIDNEY STONE Results Test Description Test Time Test Comments Text Results Atomic Results Result Comments PT/INR 2019-11-18 00:00:00 Test Item Value Reference Range Comments prothrombin time (test code = prothrombin time) 13.3 sec 11.4-15.4 international ration (INR) (test code = international ration 1.0 1 (INR)) partial thromboplastin [id number] 00:00:00 Test Item Value Reference Range Comments partial thromboplastin time (test code = partial 30.0 sec 23.5-35.8 thromboplastin time) CBC W Differential panel, method unspecified - [id number] 00:00:00 Test Item Value Reference Range Comments white blood count (test code = white blood 6.4 10 3/uL 4.0-1 0.5 count) red blood count (test code = red blood count) 4.25 10 6/uL 3. 72-5.28 hemoglobin (test code = hemoglobin) 13.2 g/dL 12.0-15.5 hematocrit (test code = hematocrit) 38.1 % 36.0-47.0 mean corpuscular volume (test code = mean 90 fL 80-97 corpuscular volume) mean corpuscular hemoglobin (test code = mean 31.1 pg 27 .0-33.4 corpuscular hemoglobin) mean corpuscular HGB conc (test code = mean 34.6 g/dL 32.0 -36.0 corpuscular HGB conc) red cell distribution width (test code = red 12.6 % 11. 5-14.0 cell distribution width) platelet count (test code = platelet count) 264 10 3/uL 150- 450 segmented neutrophils % (auto) (test code = 56.3 % 42-7 8 segmented neutrophils % (auto)) lymphocytes % (auto) (test code = lymphocytes % 26.1 % 13-45 (auto)) monocytes % (auto) (test code = monocytes % 14.4 % 3-13 (auto)) eosinophils % (auto) (test code = eosinophils % 2.6 % 0-6 (auto)) basophils % (auto) (test code = basophils % 0.6 % 0-2 (auto)) absolute neut (auto) (test code = absolute neut 3.6 10 3/uL 1.7-8.2 (auto)) absolute lymphocytes (auto) (test code = 1.7 10 3/uL 0.5-4.7 absolute lymphocytes (auto)) absolute monocytes (auto) (test code = absolute 0.9 10 3/uL 0.1-1.4 monocytes (auto)) absolute eosinophils # (auto) (test code = 0.2 10 3/uL 0.0-0 .6 absolute eosinophils # (auto)) absolute basophils # (auto) (test code = 0.0 10 3/uL 0.0-0.2 absolute basophils # (auto)) Erythrocyte sedimentation [id number] 00:00:00 Test Item Value Reference Range Comments erythrocyte sedimentation rate (test code = 26 mm/HR 0-30 erythrocyte sedimentation rate) Comprehensive metabolic 2000 panel - Serum or [id number] 00:00:00 Test Item Value Reference Range Comments calcium (test code = calcium) 9.3 mg/dL 8.4-10.2 glucose (test code = glucose) 115 mg/dL 75-110 blood urea nitrogen (test code = blood urea 13 mg/dL 7-20 nitrogen) creatinine result (test code = creatinine 0.57 mg/dL 0.52-1 .25 result) eGFR,non (test code = eGFR,non > 60 >60 ) eGFR, (test code = eGFR, > 60 >60 su[place]ese) potassium (test code = potassium) 4.3 mmol/L 3.6-5.0 chloride (test code = chloride) 103 mmol/L 98-107 carbon dioxide (test code = carbon dioxide) 28 mmol/L 22-3 0 sodium (test code = sodium) 136.4 mmol/L 137-145 anion gap (test code = anion gap) 5 5-19 albumin (test code = albumin) 3.6 g/dL 3.5-5.0 aspartate amino transferase (test code = 25 U/L 14-36 aspartate amino transferase) alkaline phosphatase (test code = alkaline 153 U/L 38-12 6 phosphatase) alanine aminotransferase (test code = alanine 13 U/L <3 5 aminotransferase) bilirubin,total (test code = bilirubin,total) 0.5 mg/dL 0. 2-1.3 bilirubin,direct (test code = bilirubin,direct) 0.0 mg/dL 0.0-0.4 total protein (test code = total protein) 6.2 g/dL 6.3-8. 2 C-reactive [id number] 00:00:00 Test Item Value Reference Range Comments C-reactive protein (test code = C-reactive 6.5 mg/L <10.0 protein) eGFR, (test code = eGFR, > 60 >60 su[place]ese) potassium (test code = potassium) 4.3 mmol/L 3.6-5.0 chloride (test code = chloride) 103 mmol/L 98-107 carbon dioxide (test code = carbon dioxide) 28 mmol/L 22-3 0 sodium (test code = sodium) 136.4 mmol/L 137-145 anion gap (test code = anion gap) 5 5-19 albumin (test code = albumin) 3.6 g/dL 3.5-5.0 aspartate amino transferase (test code = 25 U/L 14-36 aspartate amino transferase) alkaline phosphatase (test code = alkaline 153 U/L 38-12 6 phosphatase) alanine aminotransferase (test code = alanine 13 U/L <3 5 aminotransferase) bilirubin,total (test code = bilirubin,total) 0.5 mg/dL 0. 2-1.3 bilirubin,direct (test code = bilirubin,direct) 0.0 mg/dL 0.0-0.4 total protein (test code = total protein) 6.2 g/dL 6.3-8. 2 [id number] 00:00:00 Test Item Value Reference Range Comments prothrombin time (test code = prothrombin time) 13.6 sec 11.4-15.4 international ration (INR) (test code = 1.04 international ration (INR)) partial thromboplastin [id number] 00:00:00 Test Item Value Reference Range Comments partial thromboplastin time (test code = partial 29.0 sec 23.5-35.8 thromboplastin time) [id number] 00:00:00 Test Item Value Reference Range Comments prothrombin time (test code = prothrombin time) 13.6 sec 11.4-15.4 international ration (INR) (test code = 1.04 international ration (INR)) partial thromboplastin [id number] 00:00:00 Test Item Value Reference Range Comments partial thromboplastin time (test code = partial 29.0 sec 23.5-35.8 thromboplastin time) Glucose [Mass/volume] in Capillary blood by [id number] 07:08:00 Test Item Value Reference Range Comments POC nova glucose (test code = POC nova glucose) 97 mg/dL 74-106 POC [id number] 06:57:00 Test Item Value Reference Range Comments POC Glucose (test code = POC Glucose) 97 74-106 Blood Urea [id number] 13:35:00 Test Item Value Reference Range Comments BUN (test code = 410716214) 13.0 9.8-20.1 [id number] 13:35:00 Test Item Value Reference Range Comments Creatinine blood (test code = 190856929) 0.79 0.57-1. 11 Glucose [Mass/volume] in Capillary blood by [id number] 12:59:00 Test Item Value Reference Range Comments POC nova glucose (test code = POC nova glucose) 87 mg/dL 74-106 Assessments Condition Name Status Diagnosis Date Treating Clinici an Recurrent ventral incisional hernia Active 2020-03-31 1 2:58:03 Hernia of anterior abdominal wall Active 2020-03-14 08: 32:10 Pain in left knee Active 2020-02-16 12:28:33 Pain of left ankle joint Active 2020-02-08 16:49:47 Low back pain Active 2019-11-20 09:37:16 Degeneration of lumbar intervertebral Active 2019-11-21 11:58:42 disc Lumbago with sciatica Active 2019-11-21 11:58:42 Acquired spondylolisthesis Active 2019-11-21 11:58:42 Chronic back pain Active 2019-11-19 11:50:10 Low back pain Active 2019-10-29 13:09:35 Osteoarthritis of knee Active 2019-10-08 13:58:08 Knee pain Active 2019-10-08 13:14:00 Ankle pain Active 2019-10-08 13:14:11 Pain in right knee Active 2019-09-24 10:05:17 Ankle pain Active 2019-07-08 14:09:47 Closed fracture of lateral malleolus Active 2019-06-30 08:48:56 Closed pilon fracture Active 2019-06-30 11:15:53 Fever, unspecified Active 0 Low back pain Active 0 Panniculitis Active 2018-05-11 21:08:59 Panniculitis Active 2018-04-22 15:58:39 Panniculitis Active 2018-04-09 15:01:42 Panniculitis Active 2018-04-01 15:04:56 Panniculitis Active 2018-03-23 16:00:03 Panniculitis Active 2018-03-12 08:06:50 Encounters Start End Encounter Admission Attending Care Care Encounter Date/Time Date/Time Type Type Clinicians Facility Department ID 2020-03-31 2020-03-31 Rio Zhang [id number] 00:00:00 00:00:00 MD Juan A: Surgical Surgical [id number] [address] [facility] [place] [address], Ph. 2020-03-10 2020-03-10 Kareem Zhang [id number] 00:00:00 00:00:00 [facility] [id number] MD Xavier: [facility] [address] [facility], [facility] [address] [address], Ph. 2020-03-07 2020-03-07 Wilfrido Zhang 2430 00:00:00 00:00:00 Reg, Surgical Surgical [id number] MD: [facility] [place] [address], Ph. 2020-02-18 2020-02-18 Kareem Vicente [place] [id number] 00:00:00 00:00:00 [facility] [id number] MD Xavier: [facility], [address], [place] [address], Ph. 2020-02-09 2020-02-09 Kareem Mendeseret [id number] 00:00:00 00:00:00 [facility] [id number] MD Xavier: [facility] [address], [address], [place] [address], Ph. 2019-11-20 2019-11-20 Jonathon Vicente Zendejast [id number] 00:00:00 00:00:00 [place], Surgical Surgical [id number] : [facility] [place] [facility], [address], [place] [address], Ph. 2019-11-19 2019-11-19 Kareem Mendeseret [id number] 00:00:00 00:00:00 [facility] [id number] MD Xavier: [facility], [address], [place] [address], Ph. 2019-10-29 2019-10-29 Kareem Zendejast [place] [id number] 00:00:00 00:00:00 [facility] [id number] MD Xavier: [facility], [address], [place] [address], Ph. 2019-10-08 2019-10-08 Kareem Zendejast [id number] 00:00:00 00:00:00 [facility] [id number] MD Xavier: [facility] [address], [address], [place] [address], Ph. 2019-09-24 2019-09-24 Kareem Zendejast [id number] 00:00:00 00:00:00 [facility] [id number] MD Xavier: [facility] [address] [place] [address], [address], [place] [address], Ph. 2019-07-08 2019-07-08 Kareem Zendejast [id number] 00:00:00 00:00:00 [facility] [id number] MD Xavier: [facility] [address] [place] [address], [address], [place] [address], Ph. 2019-06-30 2019-06-30 Kareem Zendejast [id number] 00:00:00 00:00:00 [facility] [id number] MD Xavier: [facility] [address] [place] [address], [address], [place] [address], Ph. 2019-04-10 2019-04-29 I 1 Corwin Kirk [facility] [id number] 5619 14:40:02 11:10:00 Corwin Kirk 2019-04-10 2019-04-10 O E Delvin Davison [facility] [id number] 11:24:14 23:59:59 Delvin Davison 2018-05-07 2018-05-07 Wilfrido Mendeseret 2430 00:00:00 00:00:00 Reg, Surgical Surgical [id number] MD: [address] [place] [address], Ph. 2018-04-22 2018-04-22 Wilfrido Mendeseret 2430 00:00:00 00:00:00 Reg, Surgical Surgical [id number] MD: [address], [address], [place] [address], Ph. [phone] 2018-04-09 2018-04-09 Wilfrido Mendeseret 2430 00:00:00 00:00:00 Reg, Surgical Surgical [id number] MD: [address] [place] [address], Ph. 2018-04-01 2018-04-01 Wilfrido Zhang 2429 00:00:00 00:00:00 Klbricer, Surgical Surgical [id number] MD: [address] [place] [address], Ph. 2018-03-20 2018-03-20 Wilfrido Gerry Zendejast [place] 2429 00:00:00 00:00:00 Reg, Surgical Surgical [id number] MD: [address] [place] [address], Ph. 2018-03-14 2018-03-14 Outpatient REG, [facility] [id number] 00:05:00 17:05:00 WILFRIDO Pierce 2018-03-10 2018-03-10 Wilfrido Gerry Zendejast Vicente 243 00:00:00 00:00:00 Reg, Surgical Surgical [id number] MD: [address] [place] [address], Ph. Immunizations Ordered Filled Immunization Date Status Comments Refus al Reason Immunization Name Name influenza, 2018-02-24 Completed injectable, 00:00:00 quadrivalent Vaccination Unknown Completed Payers Payer Name Policy Type Policy Number Effective Date Expiration D ate Social History Smoking Status Start Date Stop Date Never Smoker Vital Signs Vital Name Observation Time Observation Value Comments BP Diastolic 2020-03-31 00:00:00 93 mm[Hg] Height 2020-03-31 00:00:00 66 [in_i] BMI (Body Mass Index) 2020-03-31 00:00:00 36.5 kg/m2 BP Systolic 2020-03-31 00:00:00 129 mm[Hg] Body Weight 2020-03-31 00:00:00 226 [lb_av] Height 2020-03-10 00:00:00 66 [in_i] Body Weight 2020-03-07 00:00:00 226 [lb_av] BP Diastolic 2020-03-07 00:00:00 97 mm[Hg] Height 2020-03-07 00:00:00 66 [in_i] BMI (Body Mass Index) 2020-03-07 00:00:00 36.5 kg/m2 BP Systolic 2020-03-07 00:00:00 127 mm[Hg] Height 2020-02-18 00:00:00 66 [in_i] BMI (Body Mass Index) 2020-02-18 00:00:00 33.9 kg/m2 Body Weight 2020-02-18 00:00:00 210 [lb_av] Height 2020-02-09 00:00:00 66 [in_i] BMI (Body Mass Index) 2020-02-09 00:00:00 33.9 kg/m2 Body Weight 2020-02-09 00:00:00 210 [lb_av] Height 2019-11-20 00:00:00 66 [in_i] BMI (Body Mass Index) 2019-11-20 00:00:00 33.9 kg/m2 Body Weight 2019-11-20 00:00:00 210 [lb_av] Height 2019-10-29 00:00:00 66 [in_i] BMI (Body Mass Index) 2019-10-29 00:00:00 32.3 kg/m2 Body Weight 2019-10-29 00:00:00 200 [lb_av] Height 2019-10-08 00:00:00 66 [in_i] BMI (Body Mass Index) 2019-10-08 00:00:00 32.3 kg/m2 Body Weight 2019-10-08 00:00:00 200 [lb_av] Height 2019-11-19 00:00:00 66 [in_i] BMI (Body Mass Index) 2019-11-19 00:00:00 32.3 kg/m2 Body Weight 2019-11-19 00:00:00 200 [lb_av] Height 2019-10-29 00:00:00 66 [in_i] BMI (Body Mass Index) 2019-10-29 00:00:00 32.3 kg/m2 Body Weight 2019-10-29 00:00:00 200 [lb_av] Height 2019-10-08 00:00:00 66 [in_i] BMI (Body Mass Index) 2019-10-08 00:00:00 32.3 kg/m2 Body Weight 2019-10-08 00:00:00 200 [lb_av] Height 2019-09-24 00:00:00 66 [in_i] Height 2019-07-08 00:00:00 66 [in_i] Height 2019-06-30 00:00:00 66 [in_i] BP Diastolic 2018-05-07 00:00:00 48 mm[Hg] Height 2018-05-07 00:00:00 66 [in_i] BMI (Body Mass Index) 2018-05-07 00:00:00 32.3 kg/m2 BP Systolic 2018-05-07 00:00:00 97 mm[Hg] Body Weight 2018-05-07 00:00:00 200 [lb_av] BP Diastolic 2018-04-22 00:00:00 80 mm[Hg] Height 2018-04-22 00:00:00 66 [in_i] BMI (Body Mass Index) 2018-04-22 00:00:00 33.2 kg/m2 BP Systolic 2018-04-22 00:00:00 125 mm[Hg] Body Weight 2018-04-22 00:00:00 206 [lb_av] BP Diastolic 2018-04-09 00:00:00 89 mm[Hg] Height 2018-04-09 00:00:00 66 [in_i] BMI (Body Mass Index) 2018-04-09 00:00:00 33.2 kg/m2 BP Systolic 2018-04-09 00:00:00 117 mm[Hg] Body Weight 2018-04-09 00:00:00 206 [lb_av] WEIGHT 2018-03-14 07:45:00 100.1 kg HEIGHT 2018-03-14 07:45:00 167.511386 cm WEIGHT 2018-03-14 00:05:00 98.9000 kg HEIGHT 2018-03-14 00:05:00 167.889009 cm Hospital Discharge Instructions 1. Pain of left ankle joint XR, tibia + fibula, [address], lower leg, w/o contrast - CT L Tibia w/o contrast Discussion Note: None recorded. Patient educational handouts: No information available.1. Pain in right knee Discussion Note: None recorded. Patient educational handouts: No information available.1. Closed fracture of lateral malleolus walking boot 2. Closed pilon fracture Discussion Note: None recorded. Patient educational handouts: No information available.
== END 2020-04-06 12:02 ==
LOC: SC 10:16
PROVIDERS: ATTEND Ophthalmology
DX: H25.12 Age-related nuclear cataract, left eye (principal); M19.90 Unspecified osteoarthritis, unspecified site; F41.8 Other specified anxiety disorders; E11.36 Type 2 diabetes mellitus with diabetic cataract; E66.9 Obesity, unspecified
CPT/HCPCS: 66984; V2632; J2250; J3490 ×2; J0171; J2405; J3010

== ENCOUNTER 2020-04-27 07:22 | Day surgery (SDC) | payer MEDICARE ==
[~2020-04-27 07:22] MED LIST changes: -CHONDR SU A NA/HYALUR INTRAOC KIT (SURGICARE) ONE; -DORZOLAMIDE HCL 2%/TIMOLOL MALEAT 0.5% OPH SOLN 10 ML OS PRN; -EPINEPHRINE INJ/PF 1 MG/1 ML AMPULE ONE; +KETOROLAC TROMETHAMINE 0.45% 4 DROP/0.4 ML DROPERETTE OD PRN; -KETOROLAC TROMETHAMINE 0.45% 4 DROP/0.4 ML DROPERETTE OS PRN; -LIDOCAINE 1%/PHENYLEPHRINE 1.5% 1 ML VIAL ONE; -PREDNISOLONE ACETATE 1% OPH SUSP 5 ML OS PRN
[2020-04-27] MEDS ORDERED: EPINEPHRINE INJ/PF 1 MG/1 ML AMPULE ONE (07:23)
[2020-04-27] MEDS ORDERED: LIDOCAINE 1%/PHENYLEPHRINE 1.5% 1 ML VIAL ONE (07:23)
[2020-04-27] MEDS ORDERED: CHONDR SU A NA/HYALUR INTRAOC KIT (SURGICARE) ONE (07:24)
[2020-04-27] MEDS: CYCLOPENTOLATE 0.2%/PHENYLEPHRINE 1% OPH SOLN 2 ML OD PRN ×3 (08:11→08:31)
[2020-04-27] MEDS: TROPICAMIDE 1% OPH SOLN 15 ML OD PRN ×3 (08:11→08:31)
[2020-04-27] MEDS: BESIFLOXACIN HCL 0.6% OPH SUSP 5 ML BOTTLE OD PRN ×4 (08:11→09:08)
[2020-04-27] MEDS: TETRACAINE HCL 0.5% OPH SOLN 4 ML OD PRN ×3 (08:12→08:44)
[2020-04-27] MEDS: PREDNISOLONE ACETATE 1% OPH SUSP 5 ML OD PRN ×2 (09:08)
[2020-04-27] MEDS: DORZOLAMIDE HCL 2%/TIMOLOL MALEAT 0.5% OPH SOLN 10 ML OD PRN ×2 (09:08)
--- NOTE | 2020-04-27 16:33 | Operative Report ---
Operative Report-[facility] Operative Report: DATE OF SURGERY: April 27, 2020 PREOPERATIVE DIAGNOSIS: NUCLEAR CATARACT, RIGHT EYE. POSTOPERATIVE DIAGNOSIS: NUCLEAR CATARACT, RIGHT EYE. PROCEDURE PERFORMED: PHACOEMULSIFICATION WITH POSTERIOR CHAMBER INTRAOCULAR LENS IMPLANT, RIGHT EYE. SURGEON: Sujit Estevez DO MEDICATIONS AND ANESTHESIA: Versed: IV Versed Tetracaine drops: 1 to 2 drops given as needed COMPLICATION: None INDICATIONS FOR SURGERY: Medical necessity: Best corrected visual acuity worse than 20/40 secondary to cataracts with impairment of ability to carry out needs or desired activities, blurred vision, visual distortion, reduced contrast sensitivity and/or glare with association functional impairment and supporting documentation/testing, and cataracts causing symptomatic impairment of visual functions not corrected with tolerable changes in glasses or contact lenses interfering with activities of daily life. PROCEDURE: Consent: The risks, benefits and alternatives of this procedures was discussed with the patient. The patient read and signed the consent forms, was identified and was seated in the exam chair. IOL: MX 60 E 18.5 IOL Diopters: Phacoemulsification with posterior chamber intraocular lens implant: The face was prepped with 5% povidone iodine solution, and a few drops of 5% povidone iodine solution was instilled into the inferior fornix. A non-fenestrated drape was placed over the eye and the lids were parted with the speculum. A paracentesis was made with a 15 degree blade, and 1% lidocaine MPF followed by viscoelastic was injected into the anterior chamber. A 2.4 mm metal micro- keratome was used to create a temporal clear corneal incision. A circular anterior capsulorrhexis was created, followed by hydro-dissection and hydro- delineation. The phacoemulsification hand piece was inserted and the nucleus was removed with the Phaco chop technique. The irrigation-aspiration hand piece was used to remove the residual cortex, and vacuum the posterior capsule. The capsular bag was inflated and viscoelastic and the above-mentioned IOL was injected into the eye with care to insert both leaning and trailing haptics in the capsular bag. The irrigation/aspiration hand piece was reinserted to remove residual viscoelastic from the capsular bag and anterior chamber. The corneal incision was hydrated, and anterior chamber was inflated with sterile BSS via the paracentesis site, and found to be watertight. Postop medication: 1 drop of prednisolone into operative by followed by 1 drop of Cosopt into operative eye followed by 1 drop of Besivance intraoperative by other:
== END 2020-04-27 09:40 | disposition home or self-care (01) ==
LOC: SC 07:22
PROVIDERS: ATTEND Ophthalmology
DX: H25.11 Age-related nuclear cataract, right eye (principal); Z98.42 Cataract extraction status, left eye; F41.8 Other specified anxiety disorders; M19.90 Unspecified osteoarthritis, unspecified site
CPT/HCPCS: 66984; V2632; J3490 ×2; A9270; J0171; 142

== ENCOUNTER → 2020-06-09 | Outpatient (CLI) | payer MEDICARE ==
--- NOTE | 2020-06-09 19:57 | EKG REPORT ---
SEVERITY:- BORDERLINE ECG - SINUS RHYTHM BORDERLINE T ABNORMALITIES, ANTERIOR LEADS : Confirmed by: Ailyn Cox MD 09-Jun-2020 19:56:13
== END ==
LOC: OD 16:29
PROVIDERS: ATTEND Physician Assistant
DX: Z51.81 Encounter for therapeutic drug level monitoring (principal); Z79.891 Long term (current) use of opiate analgesic; Z79.899 Other long term (current) drug therapy
CPT/HCPCS: 93005; 93010

== ENCOUNTER 2020-06-21 17:03 | Emergency (ER) | payer MEDICARE ==
[2020-06-21] MEDS ORDERED: ACETAMINOPHEN 325 MG TABLET PO ONE (17:46)
--- NOTE | 2020-06-21 18:26 | RADIOLOGY REPORT (SQ) ---
EXAM DESCRIPTION: CT HEAD WITHOUT IMAGES COMPLETED DATE/TIME: 06/21/2020 6:16 pm REASON FOR STUDY: head trauma COMPARISON: 07/26/2016 TECHNIQUE: Axial images acquired through the brain without intravenous contrast. Images reviewed wi th bone, brain and subdural windows. Additional sagittal and coronal reconstructions were generated. Images stored on PACS. All CT scanners at this facility use dose modulation, iterative reconstruction, and/or weight based d osing when appropriate to reduce radiation dose to as low as reasonably achievable (ALARA). [facility]: Dose Right [facility]: CareDose [facility]: Dose Right [facility]: Teradose 4D [facility]: Smart transOMIC RADIATION DOSE: CT Rad equipment meets quality standard of care and radiation dose reduction techniq ues were employed. CTDIvol: 53.2 mGy. DLP: 937 mGy-cm. mGy. LIMITATIONS: None. FINDINGS: VENTRICLES: Normal size and contour. CEREBRUM: No masses. No hemorrhage. No midline shift. No evidence for acute infarction. Areas of l ow density in the white matter most likely chronic small vessel ischemic changes. CEREBELLUM: No masses. No hemorrhage. No alteration of density. No evidence for acute infarction. EXTRAAXIAL SPACES: No fluid collections. No masses. ORBITS AND GLOBE: No intra- or extraconal masses. Normal contour of globe without masses. CALVARIUM: No fracture. PARANASAL SINUSES: No fluid or mucosal thickening. SOFT TISSUES: Small posterior parietal scalp hematoma on the left. OTHER: No other significant finding. IMPRESSION: Small scalp hematoma. Mild chronic microvascular ischemia. No acute intracranial imagi ng findings. EVIDENCE OF ACUTE STROKE: NO. COMMENT: Quality ID # [id number]: Final reports with documentation of one or more dose reduction techniques (e.g., Automated exposure control, adjustment of the mA and/or kV according to patient size, use of iterative reconstruction technique) TECHNICAL DOCUMENTATION: JOB ID: [id number] 2010 [employer]- All Rights Reserved Reading location - IP/workstation name: [email or web address]
--- NOTE | 2020-06-21 18:29 | RADIOLOGY REPORT (SQ) ---
EXAM DESCRIPTION: CT CERVICAL SPINE WITHOUT IMAGES COMPLETED DATE/TIME: 06/21/2020 6:16 pm REASON FOR STUDY: head trauma COMPARISON: 2015 TECHNIQUE: Axial images acquired through the cervical spine without intravenous contrast. Images re viewed with lung, soft tissue and bone windows. Reconstructed coronal and sagittal MPR images review ed. Images stored on PACS. All CT scanners at this facility use dose modulation, iterative reconstruction, and/or weight based d osing when appropriate to reduce radiation dose to as low as reasonably achievable (ALARA). [facility]: Dose Right [facility]: CareDose [facility]: Dose Right [facility]: Teradose 4D [facility]: Smart CiraNova RADIATION DOSE: CT Rad equipment meets quality standard of care and radiation dose reduction techniq ues were employed. CTDIvol: 16.7 mGy. DLP: 292 mGy-cm. mGy. LIMITATIONS: None. FINDINGS: ALIGNMENT: Anatomic. MINERALIZATION: Normal. VERTEBRAL BODIES: No fractures or dislocation. DISCS: There is disc narrowing throughout the cervical spine. This is most prominent from C4 to C7. Marginal osteophytes are present. FACETS, LATERAL MASSES, POSTERIOR ELEMENTS: Hypertrophic facet changes are present. HARDWARE: None in the spine. VISUALIZED RIBS: No fractures. LUNG APICES AND SOFT TISSUES: No significant or acute findings. OTHER: No other significant finding. IMPRESSION: Degenerative disc disease. Spondylosis. Facet arthropathy. TECHNICAL DOCUMENTATION: JOB ID: [id number] Quality ID # [id number]: Final reports with documentation of one or more dose reduction techniques (e.g., Au tomated exposure control, adjustment of the mA and/or kV according to patient size, use of iterative reconstruction technique) 2010 [employer]- All Rights Reserved Reading location - IP/workstation name: [email or web address]
--- NOTE | 2020-06-21 18:49 | ER Document Report ---
HPI - HPI Patient complains to provider of: fall Time Seen by Provider: 06/21/20 17:41 Pain Level: 3 Context: 55-year-old female presents to the emergency room after a trip and fall. States she was coming out of the doctor's office when she tripped over the curb falling backward hitting her head on the concrete. She denies any loss of consciousness. No vomiting. Complains of a severe headache. No meds prior to arrival. Exacerbated by: Denies Relieved by: Denies Similar symptoms previously: No Recently seen / treated by doctor: No - ROS Systems Reviewed and Negative: Yes All other systems reviewed and negative - NEURO Neurology: REPORTS: Headache, Dizzinesss / Vertigo. DENIES: Weakness, Vision blurred - CARDIOVASCULAR Cardiovascular: DENIES: Chest pain - RESPIRATORY Respiratory: DENIES: Trouble Breathing - DERM Skin Color: Normal Skin Problems: None Past Medical History - General Information source: Patient - Social History Smoking Status: Never Smoker Frequency of alcohol use: None Drug Abuse: None Family History: Reviewed & Not Pertinent - Past Medical History Cardiac Medical History: Denies: Hx Coronary Artery Disease, Hx Heart Attack, Hx Hypertension Pulmonary Medical History: Denies: Hx Asthma, Hx Bronchitis, Hx COPD, Hx Pneumonia Neurological Medical History: Denies: Hx Cerebrovascular Accident, Hx Seizures Endocrine Medical History: Comment Only: Hx Diabetes Mellitus Type 2 - Pre- diabetic Renal/ Medical History: Denies: Hx Peritoneal Dialysis GI Medical History: Denies: Hx Hepatitis, Hx Hiatal Hernia, Hx Ulcer Musculoskeletal Medical History: Reports Hx Arthritis, Reports Hx Fibromyalgia Psychiatric Medical History: Reports: Hx Depression Infectious Medical History: Denies: Hx Hepatitis Past Surgical History: Reports: Hx Abdominal Surgery - Gallstones, Hx Cholecystectomy, Hx Gastric Bypass Surgery, Hx Orthopedic Surgery - back hugo hedy, Hx Tonsillectomy, Hx Urinary Tract Surgery - kidney stone removal. Denies: Hx Hysterectomy, Hx Mastectomy, Hx Open Heart Surgery, Hx Pacemaker - Immunizations Hx Diphtheria, Pertussis, Tetanus Vaccination: Yes Vertical Provider Document - CONSTITUTIONAL Agree With Documented VS: Yes Exam Limitations: No Limitations General Appearance: Mild Distress - INFECTION CONTROL TRAVEL OUTSIDE OF THE [place] IN LAST 30 DAYS: No - HEENT HEENT: Normocephalic, PERRLA Notes: 3 cm tender hematoma noted to the posterior scalp. Negative for raccoon eyes, negative for crowley signs. - NECK Neck: Supple - Cervical spine is nontender to palpation. Patient does have pain with lateral movement of the neck. No step-offs. No obvious deformities noted. - RESPIRATORY Respiratory: Breath Sounds Normal, No Respiratory Distress - CARDIOVASCULAR Cardiovascular: Regular Rate, Regular Rhythm, No Murmur - NEURO Level of Consciousness: Awake, Alert, Slow to Respond Motor/Sensory: No Motor Deficit, No Sensory Deficit - DERM Integumentary: Warm, Dry, No Rash Course - Re-evaluation Re-evalutation: 06/21/20 17:45 Patient with severe mechanism of injury, complaining of a headache and dizziness. Respond when questioned. Presentation of head trauma in an otherwise well-appearing patient. With focal neurologic deficits on exam, no evidence of basilar skull fracture on exam without evidence of hemotympanum, raccoon eyes, or periauricular hematoma. No papilledema. Patient is not on anticoagulation. GCS is 14. No loss of consciousness. No episodes of vomiting. Patient is slow to respond when asked questions. Patient is therefore positive via Israeli head CT criteria and CT imaging will be obtained at this time. 06/21/20 18:47 Patient is resting comfortably with decreased pain. Alert and oriented x3. Now able to answer questions appropriately. States headache has improved denies any dizziness. She is ambulatory with a steady gait. She is neurovascularly intact. Reviewed CT head and CT scan results with patient. No acute fractures. C-spine with degenerative disc disease. Patient was counseled to continue with Tylenol as needed for pain. Ice 20 minutes 3 times a day. Home and rest for the next 24 hours. Recheck with primary physician tomorrow. Will be given head injury instructions. Patient was given strict return to the emergency room guidelines. Return for any new or worsening symptoms. All questions were answered. Patient verbalized understanding and agrees with plan of care. 06/21/20 19:48 - Vital Signs Vital signs: Temp Pulse Resp BP Pulse Ox 98.8 F 92 18 147/112 H 94 06/21/20 17:26 06/21/20 17:26 06/21/20 17:26 06/21/20 17:26 06/21/20 17:26 - Laboratory Results Critical Laboratory Results Reviewed: No Critical Results - Radiology Results Critical Radiology Results Reviewed: No Critical Results Discharge - Discharge Clinical Impression: Fall Qualifiers: Encounter type: initial encounter Qualified Code(s): W19.XXXA - Unspecified fall, initial encounter Head injury Qualifiers: Encounter type: initial encounter Qualified Code(s): S09.90XA - Unspecified injury of head, initial encounter Strain of neck Qualifiers: Encounter type: initial encounter Qualified Code(s): S16.1XXA - Strain of m uscle, fascia and tendon at neck level, initial encounter Concussion Qualifiers: Encounter type: initial encounter Loss of consciousness presence/duration: without LOC Qualified Code(s): S06.0X0A - Concussion without loss of consciousness, initial encounter Scalp hematoma Qualifiers: Encounter type: initial encounter Qualified Code(s): S00.03XA - Contusion of scalp, initial encounter Condition: Stable Disposition: HOME, SELF-CARE Instructions: Concussion ([facility]), Head Injury Precautions ([facility]), Scalp Hematoma ([facility]) Additional Instructions: You have likely sustained a concussion. If you had a CT scan done, it did not show any evidence of serious injury or bleeding. Symptoms to expect from a concussion include nausea, mild to moderate headache, difficulty concentrating or sleeping, and mild lightheadedness. These symptoms should improve over the next few days to weeks. Return to the emergency department or follow-up with your primary care doctor if your symptoms are not improving over this time. Signs of a more serious head injury include vomiting, severe headache, excessive sleepiness or confusion, and weakness or numbness in your face, arms or legs. Return immediately to the Emergency Department if you experience any of these more concerning symptoms. Rest, avoid strenuous physical or mental activity, and avoid activities that could potentially result in another head injury until all your symptoms from this head injury are completely resolved for at least 2-3 weeks. If you participate in sports, get cleared by your doctor or lead trainer before returning to play. You may take ibuprofen or acetaminophen over the counter according to label instructions for mild headache or scalp soreness.
[2020-06-21 19:00] VITALS: BP 153/113
== END 2020-06-21 18:59 | disposition home or self-care (01) ==
LOC: ER 17:03
DX: S06.0X0A Concussion without loss of consciousness, initial encounter (principal); S00.03XA Contusion of scalp, initial encounter; S16.1XXA Strain of muscle, fascia and tendon at neck level, initial encounter; W10.1XXA Fall (on)(from) sidewalk curb, initial encounter; Y92.531 Health care provider office as the place of occurrence of the external cause
CPT/HCPCS: 99284; 70450; 72125; A9270